=== PATIENT | female | born 1960 | race Caucasian/White ===

== ENCOUNTER 2016-11-24 20:22 | Emergency (ER) | payer BC ==
--- NOTE | 2016-11-24 21:13 | UC ---
Respiratory Complaint HPI - HPI Summary HPI Summary: The patient comes in today for: 1. Cough: Onset: "a few weeks." Palliative/provocative: Nothing makes it better or worse. Quality: Wheezy Region/radiation: Lungs. Severity: 0/10 pain. Time: Constant. Associated symptoms: Asthma: She has had this since childhood. She uses inhalers, but she is not able to tell me the names of them. She states that she has albuterol and uses the "purple and white" disk. She is also on Singulair. She does not see a lung specialist. She takes prednisone every day (10 mg). She has had prednisone for her asthma in the hospital through an IV. Chest pain: None. Dyspnea: ONly with motion,activity. Fevers: 103 and 104 last night. * - History of Current Complaint Chief Complaint: UCRespiratory Stated Complaint: COUGH Time Seen by Provider: 11/24/16 21:07 Hx Obtained From: Patient Hx Last Menstrual Period: 07/2016 dnc - Allergies/Home Medications Allergies/Adverse Reactions: Allergies Allergy/AdvReac Type Severity Reaction Status Date / Time No Known Allergies Allergy Verified 08/01/16 07:48 PMH/Surg Hx/FS Hx/Imm Hx Previously Healthy: No - Lupus on prednisone, left shoulder pain. Endocrine History Of: Reports: Diabetes - BORDERLINE Denies: Thyroid Disease, Hyperthyroidism, Hypothyroidism, Dyslipidemia Cardiovascular History Of: Reports: Hypertension - ON MEDS Denies: Cardiac Disorders, Pacemaker/ICD, Myocardial Infarction, Congestive Heart Failure, Atrial Fibrillation, Deep Vein Thrombosis, Bleeding Disorders Respiratory History Of: Reports: Asthma - WILL BRING INHALERS Denies: COPD GI/ History Of: Denies: Gastroesophageal Reflux, Ulcer, Gastrointestinal Bleed, Gall Bladder Disease, Kidney Stones, Diverticulitis, Renal Disease, Urosepsis Neurological History Of: Reports: CVA - "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 SINUS SURGERY . [facility] fall 2015 - Family History Known Family History: Positive: Cardiac Disease, Hypertension, Diabetes - Social History Occupation: Employed Full-time Alcohol Use: Rare Alcohol Amount: [place]OLIDA[place] Substance Use Type: None Smoking Status (MU): Never Smoked Tobacco Have You Smoked in the Last Year: No - Immunization History Most Recent Influenza Vaccination: denies Review of Systems Constitutional: Fever Skin: Negative Eyes: Negative ENT: Negative Respiratory: Negative, Cough Gastrointestinal: Negative Genitourinary: Negative All Other Systems Reviewed And Are Negative: Yes Physical Exam Triage Information Reviewed: Yes Appearance: No Pain Distress, Obese Vital Signs: Initial Vital Signs Temp 98.1 F 11/24/16 20:36 Pulse 104 11/24/16 20:36 Resp 20 11/24/16 20:36 BP 144/71 11/24/16 20:36 Pulse Ox 98 11/24/16 20:36 Vital Signs Reviewed: Yes Eyes: Positive: Conjunctiva Clear. Negative: Discharge ENT: Positive: Hearing grossly normal. Negative: Pharyngeal erythema, Nasal congestion, Nasal drainage, TM bulging, TM dull, TM red, Tonsillar swelling, Tonsillar exudate Dental: Negative: Gross Decay/Caries @, Dental Fracture @ Neck: Positive: Supple, Nontender, No Lymphadenopathy. Negative: Nuchal Rigidity Respiratory: Positive: Chest non-tender, No respiratory distress, Crackles, Rhonchi, Wheezing, Other: - Shortened inspiration/expiration cycle. Audible wheezing when walking into the room. No intercostal retractions seen, but she has increased subcutaneous fat present.. Negative: Lungs clear Cardiovascular: Positive: RRR, No Murmur Abdomen Description: Positive: Nontender, No Organomegaly, Soft Musculoskeletal: Positive: Strength Intact, ROM Intact Neurological: Positive: Alert, Muscle Tone Normal Psychological: Positive: Age Appropriate Behavior Skin: Negative: rashes, breakdown UC Diagnostic Evaluation - Laboratory O2 Sat by Pulse Oximetry: 98 Respiratory Course/Dx - Course Course Of Treatment: The patient was given a DuoNeb treatment. She did not think that this helped much and my exam of her lungs did not reveal any improvement. - Differential Dx/Diagnosis Provider Diagnoses: Asthma exacerbation not responsive to treatment. Discharge - Discharge Plan Condition: Stable Disposition: HOME Additional Instructions: Patient will be going to the [facility] via ambulance. She changed her mind at the last minute.
[2016-11-24] MEDS ORDERED: methylPREDNISolone 125 MG* 2 ML VIAL IM ONE (21:18)
[2016-11-24] MEDS ORDERED: Ipratropium 0.5MG/2.5ML NEB* 0.5 MG/2.5 ML NEB.SOLN INH ONE (21:18)
[2016-11-24] MEDS ORDERED: Albuterol 2.5 MG/3 ML NEB.SOL* (0.083%) INH ONE (21:18)
--- NOTE | 2016-11-24 22:00 | RAD ---
INDICATION: Shortness of breath, cough, fever 2 weeks duration. History of asthma. COMPARISON: October 11, 2011 CT abdomen. TECHNIQUE: Dual energy PA and routine lateral views of the chest were obtained. REPORT: Airspace consolidation at RIGHT lower lung zone likely involving the basilar segments of the RIGHT lower lobe. Negative for volume loss to favor atelectasis. Clear pleural spaces. Negative for pneumothorax. The heart, pulmonary vasculature, and mediastinal contours are unremarkable. IMPRESSION: RIGHT basilar pneumonia.
[2016-11-24 22:24] VITALS: BP 142/93
== END 2016-11-24 22:19 | disposition short-term general hospital (02) ==
LOC: UCEAST 20:22
DX: J45.901 Unspecified asthma with (acute) exacerbation (principal); E66.9 Obesity, unspecified; I10 Essential (primary) hypertension; I63.9 Cerebral infarction, unspecified
CPT/HCPCS: 71020; 96372; 99213; G0463; J2930; J7644

== ENCOUNTER 2016-11-24 22:47 | Inpatient (IN) | payer BC ==
[2016-11-24 23:19] LABS: PCO2 Arterial 24 mmHg (35-45)
[2016-11-25] MEDS ORDERED: cefTRIAXone(*) 1 GM in NS 0.9% 50 ML* 50 ML IVPB ONE (00:07)
[2016-11-25] MEDS ORDERED: Levofloxacin 750 MG IVPREMIX(* 750 MG/150 ML BAG IVPB ONE (00:07)
[2016-11-25 00:40] LABS: Hematocrit 40 % (35-47); Hemoglobin 13.6 g/dl (12.0-16.0); Mean Corpuscular HGB Conc 34 g/dl (31-36); Mean Corpuscular Hemoglobin 29 pg (27-31); Mean Corpuscular Volume 85 fL (80-97); Mean Platelet Volume 11 um3 (7.4-10.4); Red Blood Count 4.67 10^6/ul (4.0-5.4); Red Cell Distribution Width 13 % (10.5-15); White Blood Count 10.1 10^3/ul (3.5-10.8)
[2016-11-25 00:53] LABS: BUN/Creatinine Ratio 11.4 (8-20); C Reactive Protein 125.87 mg/L (< 5.00); Calcium 9.4 mg/dL (8.6-10.3); EGFR African American 69.5 (>60); Globulin 3.7 g/dL (2-4); Potassium 3.2 mmol/L (3.5-5.0); Total Bilirubin 0.6 mg/dL (0.2-1.0); Total Protein 7.7 g/dL (6.4-8.9)
[2016-11-25 00:55] LABS: Troponin I 0.02 ng/mL (<0.04)
[2016-11-25] MEDS ORDERED: cefTRIAXone(*) 1 GM ADVAN ONE (01:53)
[2016-11-25] MEDS ORDERED: Acetaminophen TAB* 325 MG PO PRN (03:23)
[2016-11-25] MEDS ORDERED: Albuterol 2.5 MG/3 ML NEB.SOL* (0.083%) INH PRN (03:23)
[2016-11-25] MEDS ORDERED: Melatonin (NF) 3 MG TAB PO PRN (03:24)
[2016-11-25] MEDS ORDERED: Morphine INJ* 2 MG/ML 1 ML SYRINGE IV PRN (03:24)
[2016-11-25] MEDS ORDERED: traMADol TAB* 50 MG PO PRN (03:25)
[2016-11-25] MEDS ORDERED: oxyCODONE TAB* 5 MG TAB PO PRN (03:25)
[2016-11-25] MEDS ORDERED: Ondansetron INJ* 2 MG/ML VIAL IV PRN (03:25)
--- NOTE | 2016-11-25 03:28 | HP ---
H&P (Free Text) History and Physical: PCP: Josh Lau MD Date/Time of Evaluation: 11/25/2016 0115 CC: SOB HPI: Mrs Mckeon is a 55YO female HX asthma who presented to [facility] with complaint of SOB found to have RLL pneumonia on CXR and subsequently transferred to [facility] ED. She states her cough and SOB began ~3 days ago and have been gradually worsening. She reports subjective F/C and N/V. The vomiting occurs at the end of coughing spells. PMedHx "borderline" pre-DM2 SLE HTN asthma diverticulitis Allergies No Known Allergies Allergy (Verified 08/01/16 07:48) Ambulatory Orders Albuterol HFA INHALER* [Ventolin HFA Inhaler*] 2 puff INH Q4H PRN 11/09/15 Lisinopril TAB* [Prinivil TAB*] 1 tab PO DAILY 11/09/15 predniSONE TAB* [Deltasone TAB*] 5 mg PO BID 11/09/15 Albuterol 0.5% CONC NEB.FREDY* 1 INH PRN 07/25/16 HYDROcodone/ACETAMIN 5-325 MG* [[place] 5-325 TAB*] 1 PO PRN 07/25/16 Multiple Vitamins W/ Minerals [Multivitamin Women] 1 PO DAILY 07/25/16 Montelukast Sodium TAB* [Singulair 10 MG TAB*] 10 mg PO DAILY 08/01/16 SocHx: no tobacco, alcohol, or recreational drugs; lives with her ; 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 Father passed at 72 2nd CVA. ROS: as above, otherwise reviewed and all were negative Constitutional: NAD, normally developed, morbidly obese white female vitals: Vital Signs Temp 36.4 C 11/24/16 23:10 Pulse 111 11/25/16 02:00 Resp 21 11/25/16 02:00 BP 143/76 11/25/16 01:30 Pulse Ox 96 11/25/16 02:00 Intake & Output 11/24/16 11/24/16 11/25/16 11:59 23:59 11:59 Intake Total 50 Balance 50 Weight 104.326 kg Intake: IV Fluids 50 HEENM: atraumatic; sclera/conjunctiva: non-icteric/clear; hearing: clinically intact; oropharynx: clear, mucosa moist Neck: soft tissue: non-tender; thyroid: normal Pulmonary: crackles R base with mild platt-inspiratory/expiratory wheeze, fair aeration, no accessory muscle use CV: RR/RR, normal S1S2, no carotid bruit, no jugular venous distention, 2+ B DP/ PT, no edema Abdominal: soft, non-distended, non-tender, no rebound/guarding/rigidity, normoactive bowel sounds, no hepatosplenomegaly or masses, no costovertebral angle tenderness Musculoskeletal: general: grossly intact; gait: stable Integumental: normal appearance and texture Psychiatric orientation: AA&O to PPS affect: calm mood: cooperative eye contact: good content: reliable responses: timely insight: good Testing: Lab Results 11/24/16 11/25/16 11/25/16 Range/Units 23:10 00:20 00:20 WBC 10.1 (3.5-10.8) 10^3/ul RBC 4.67 (4.0-5.4) 10^6/ul Hgb 13.6 (12.0-16.0) g/dl Hct 40 (35-47) % MCV 85 (80-97) fL MCH 29 (27-31) pg MCHC 34 (31-36) g/dl RDW 13 (10.5-15) % Plt Count 154 (150-450) 10^3/ul MPV 11 H (7.4-10.4) um3 Neut % (Auto) 82.2 (38-83) % Lymph % (Auto) 10.6 L (25-47) % [place] % (Auto) 6.3 (1-9) % Eos % (Auto) 0.4 (0-6) % Baso % (Auto) 0.5 (0-2) % Absolute Neuts (auto) 8.3 H (1.5-7.7) 10^3/ul Absolute Lymphs (auto) 1.1 (1.0-4.8) 10^3/ul Absolute Monos (auto) 0.6 (0-0.8) 10^3/ul Absolute Eos (auto) 0 (0-0.6) 10^3/ul Absolute Basos (auto) 0 (0-0.2) 10^3/ul Absolute Nucleated RBC 0.02 10^3/ul Nucleated RBC % 0.2 APTT 29.8 (26.0-36.3) seconds D-Dimer, Quantitative 305 H (Less Than 230) ng/mL ABG pH 7.51 H (7.35-7.45) ABG pCO2 24 L (35-45) mmHg ABG pO2 86 (80-100) mmHg ABG HCO3 23.2 (19-31) mmol/L ABG O2 Saturation 97.9 (95-98) % ABG Base Excess -2.1 L (-2.0-2.0) Sodium (133-145) mmol/L Potassium (3.5-5.0) mmol/L Chloride (101-111) mmol/L Carbon Dioxide (22-32) mmol/L Anion Gap (2-11) mmol/L BUN (6-24) mg/dL Creatinine (0.51-0.95) mg/dL Est GFR ( Amer) (>60) Est GFR (Non-Af Amer) (>60) BUN/Creatinine Ratio (8-20) Glucose (70-100) mg/dL Lactic Acid (0.5-2.0) mmol/L Calcium (8.6-10.3) mg/dL Total Bilirubin (0.2-1.0) mg/dL AST (13-39) U/L ALT (7-52) U/L Alkaline Phosphatase (34-104) U/L Total Creatine Kinase (10-223) U/L CK-MB (CK-2) (0.6-6.3) ng/mL Troponin I (<0.04) ng/mL C-Reactive Protein (< 5.00) mg/L B-Natriuretic Peptide ( - 100) pg/mL Total Protein (6.4-8.9) g/dL Albumin (3.2-5.2) g/dL Globulin (2-4) g/dL Albumin/Globulin Ratio (1-3) 11/25/16 11/25/16 11/25/16 Range/Units 00:20 00:20 00:20 WBC (3.5-10.8) 10^3/ul RBC (4.0-5.4) 10^6/ul Hgb (12.0-16.0) g/dl Hct (35-47) % MCV (80-97) fL MCH (27-31) pg MCHC (31-36) g/dl RDW (10.5-15) % Plt Count (150-450) 10^3/ul MPV (7.4-10.4) um3 Neut % (Auto) (38-83) % Lymph % (Auto) (25-47) % [place] % (Auto) (1-9) % Eos % (Auto) (0-6) % Baso % (Auto) (0-2) % Absolute Neuts (auto) (1.5-7.7) 10^3/ul Absolute Lymphs (auto) (1.0-4.8) 10^3/ul Absolute Monos (auto) (0-0.8) 10^3/ul Absolute Eos (auto) (0-0.6) 10^3/ul Absolute Basos (auto) (0-0.2) 10^3/ul Absolute Nucleated RBC 10^3/ul Nucleated RBC % APTT (26.0-36.3) seconds D-Dimer, Quantitative (Less Than 230) ng/mL ABG pH (7.35-7.45) ABG pCO2 (35-45) mmHg ABG pO2 (80-100) mmHg ABG HCO3 (19-31) mmol/L ABG O2 Saturation (95-98) % ABG Base Excess (-2.0-2.0) Sodium 134 (133-145) mmol/L Potassium 3.2 L (3.5-5.0) mmol/L Chloride 97 L (101-111) mmol/L Carbon Dioxide 22 (22-32) mmol/L Anion Gap 15 H (2-11) mmol/L BUN 12 (6-24) mg/dL Creatinine 1.05 H (0.51-0.95) mg/dL Est GFR ( Amer) 69.5 (>60) Est GFR (Non-Af Amer) 54.0 (>60) BUN/Creatinine Ratio 11.4 (8-20) Glucose 244 H (70-100) mg/dL Lactic Acid 3.6 H* (0.5-2.0) mmol/L Calcium 9.4 (8.6-10.3) mg/dL Total Bilirubin 0.60 (0.2-1.0) mg/dL AST 48 H (13-39) U/L ALT 64 H (7-52) U/L Alkaline Phosphatase 73 (34-104) U/L Total Creatine Kinase 240 H (10-223) U/L CK-MB (CK-2) 1.1 (0.6-6.3) ng/mL Troponin I 0.02 (<0.04) ng/mL C-Reactive Protein 125.87 H (< 5.00) mg/L B-Natriuretic Peptide 34 ( - 100) pg/mL Total Protein 7.7 (6.4-8.9) g/dL Albumin 4.0 (3.2-5.2) g/dL Globulin 3.7 (2-4) g/dL Albumin/Globulin Ratio 1.1 (1-3) ECG, personally reviewed: sinus tachycardia rate 135, diffuse non-specific ST-T abnormalities CXR, personally reviewed: IMPRESSION: RIGHT basilar pneumonia. Impression: 55F presenting with RLL pneumonia and 2nd asthma exacerbation DIAGNOSIS & PLAN Primary sepsis (tachycardia, tachypnea, lactic acidosis) 2nd RLL CAP : received IV ceftriaxone & levofloxacin in ED : will continue levofloxacin IV : guaifenesin : continue montelukast : IVFs : blood & sputum CXs : supplemental oxygen : rapid influenza : urine S pneumo & Legionella antigens : supportive care asthma exacerbation : albuterol nebs : mometasone formoterol : IV methylprednisolone : incentive spirometry minimally elevated d-dimer : gradual onset of symptoms without chest pain with RLL pneumonia and sepsis provides adequate explanation : would not pursue CTA at this time Secondary pre-DM2 : consistent carb diet : ACHS glucometry : correctional lispro while on steroids SLE : hold prednisone while on methylprednisolone HTN : continue lisinopril Admission Rational: inpatient for management of sepsis 2nd RLL pneumonia w/ asthma exacerbation inappropriate for outpatient setting DVTp: heparin SQ Code Status: full HCP:
[2016-11-25 05:17] LABS: Hematocrit 41 % (35-47); Hemoglobin 13.4 g/dl (12.0-16.0); Mean Corpuscular HGB Conc 33 g/dl (31-36); Mean Corpuscular Hemoglobin 28 pg (27-31); Mean Corpuscular Volume 87 fL (80-97); Mean Platelet Volume 10 um3 (7.4-10.4); Red Blood Count 4.74 10^6/ul (4.0-5.4); Red Cell Distribution Width 13 % (10.5-15); White Blood Count 8.2 10^3/ul (3.5-10.8)
[2016-11-25 05:27] LABS: BUN/Creatinine Ratio 12.5 (8-20); Calcium 9.6 mg/dL (8.6-10.3); EGFR Non-African American 59.9 (>60); Potassium 3.9 mmol/L (3.5-5.0)
[2016-11-25] MEDS: Omeprazole CAP* 20 MG PO SCH (06:26)
--- NOTE | 2016-11-25 06:56 | PN ---
Progress Note - Progress Note Note: Rapid influenza ordered at 0300, listed as completed, no result available in [facility] Spoke w/ lab who will look into issue & correct.
[2016-11-25] MEDS: NS 0.9% 1000 ML* 1,000 ML IV SCH ×4 (06:58→19:37)
[2016-11-25 07:19] LABS: Urine Bacteria Absent (Absent); Urine Bilirubin Negative (Negative); Urine Glucose 1+(50 mg/dL) (Negative); Urine Nitrite Negative (Negative)
[2016-11-25] MEDS: Albuterol 2.5 MG/3 ML NEB.SOL* (0.083%) INH SCH ×3 (07:32→19:56)
[2016-11-25] MEDS: Mometasone/Formoter 200/5 MDI INH SCH ×2 (07:32→19:56)
[2016-11-25] MEDS ORDERED: Spiriva Inhaler DEVICE* 1 EACH DEVICE ONE (08:00)
[2016-11-25] MEDS ORDERED: Docusate CAP* 100 MG PO SCH (09:00)
[2016-11-25] MEDS ORDERED: Tiotropium CAP.INH* CAP.INH/18 MCG INH SCH (09:00)
[2016-11-25] MEDS: Montelukast Sodium TAB* 10 MG PO SCH (09:19)
[2016-11-25] MEDS: Lisinopril TAB* 5 MG PO SCH (09:19)
[2016-11-25] MEDS: Insulin LISPRO* 1 UNITS UNIT SUBCUT SCH ×4 (09:19→21:16)
[2016-11-25] MEDS: guaiFENesin ER TAB 600 MG PO SCH ×2 (09:20→21:16)
[2016-11-25] MEDS ORDERED: Heparin VIAL(*) 5000 UNITS/ML VIAL (FIVE THOUSAND) SUBCUT SCH (11:00)
[2016-11-25] MEDS: Heparin VIAL(*) 5000 UNITS/ML VIAL (FIVE THOUSAND) SUBCUT SCH ×2 (13:51→21:15)
[2016-11-25] MEDS ORDERED: predniSONE TAB* 10 MG PO ONE (18:18)
--- NOTE | 2016-11-25 18:29 | PN ---
Subjective Date of Service: 11/25/16 Interval History: Feels much better. Some yellow sputum. No new c/o. She states the last time she was hospitalized for asthma was 15 years ago. Objective Active Medications: Acetaminophen (Tylenol Tab*) 650 mg PO Q6H PRN PRN Reason: FEVER/PAIN Last Admin: 11/25/16 15:40 Dose: 650 mg Albuterol (Ventolin 2.5 Mg/3 Ml Neb.Geena*) 2.5 mg INH Q2H PRN PRN Reason: SOB/WHEEZING Albuterol (Ventolin 2.5 Mg/3 Ml Neb.Geena*) 2.5 mg INH [id number] AWAKE [facility] Last Admin: 11/25/16 14:13 Dose: 2.5 mg Docusate Sodium (Colace Cap*) 200 mg PO BID [facility] Last Admin: 11/25/16 08:57 Dose: Not Given Guaifenesin (Mucinex*) 1,200 mg PO BID [facility] Last Admin: 11/25/16 09:20 Dose: 1,200 mg Heparin Sodium (Porcine) (Heparin Vial(*)) 5,000 units SUBCUT Q8HR [facility] Last Admin: 11/25/16 13:51 Dose: 5,000 units Levofloxacin/Dextrose (Levaquin 750 Mg Ivpremix(*)) 750 mg in 150 mls @ 100 mls /hr IVPB Q24H [facility] Sodium Chloride (Ns 0.9% 1000 Ml*) 1,000 mls @ 125 mls/hr IV PER RATE [facility] Last Admin: 11/25/16 11:26 Dose: 125 mls/hr Sodium Chloride (Ns 0.9% 1000 Ml*) 1,000 mls @ 0 mls/hr IV WIDE OPEN [facility] PRN Reason: Wide Open Stop: 11/26/16 03:31 Last Admin: 11/25/16 10:11 Dose: 999 mls/hr Insulin Human Lispro (Humalog*) 0 units SUBCUT ACHS [facility] PRN Reason: Protocol Last Admin: 11/25/16 17:34 Dose: 3 units Lisinopril (Prinivil Tab*) 5 mg PO DAILY [facility] Last Admin: 11/25/16 09:19 Dose: 5 mg Melatonin (Melatonin (Nf)) 3 mg PO BEDTIME PRN; Protocol PRN Reason: Sleep Mometasone Furoate/Formoterol Fumar (Dulera 200/5 Mdi*) 2 puff INH BID [facility] Last Admin: 11/25/16 07:32 Dose: 2 puff Montelukast Sodium (Singulair Tab*) 10 mg PO DAILY [facility] Last Admin: 11/25/16 09:19 Dose: 10 mg Morphine Sulfate (Morphine Inj (Syringe)*) 2 mg IV Q4H PRN PRN Reason: air hunger Omeprazole (Prilosec Cap*) 20 mg PO DAILY@0600 [facility] Last Admin: 11/25/16 06:26 Dose: 20 mg Ondansetron HCl (Zofran Inj*) 4 mg IV Q6H PRN PRN Reason: NAUSEA Oxycodone HCl (Roxycodone Tab*) 5 mg PO Q4H PRN PRN Reason: PAIN Prednisone (Deltasone Tab*) 30 mg PO ONCE ONE Stop: 11/25/16 18:19 Prednisone (Deltasone Tab*) 60 mg PO DAILY [facility] Tiotropium [place] (Spiriva Cap.Inh*) 1 cap INH DAILY [facility] Last Admin: 11/25/16 07:38 Dose: 1 cap.inh Tramadol HCl (Ultram*) 50 mg PO Q6H PRN PRN Reason: PAIN Vital Signs 11/25/16 11/25/16 11/25/16 01:30 02:00 03:03 Temperature 98.4 F Pulse Rate 117 111 Respiratory 24 21 Rate Blood Pressure 143/76 (mmHg) O2 Sat by Pulse 96 96 Oximetry 11/25/16 11/25/16 11/25/16 04:14 04:20 05:00 Temperature 98.2 F 98.2 F Pulse Rate 106 106 Respiratory 24 24 Rate Blood Pressure 152/81 152/81 (mmHg) O2 Sat by Pulse 96 96 Oximetry 11/25/16 11/25/16 11/25/16 07:00 07:19 07:40 Temperature 98.3 F Pulse Rate 99 102 Respiratory 22 20 22 Rate Blood Pressure 147/72 (mmHg) O2 Sat by Pulse 100 97 98 Oximetry 11/25/16 11/25/16 11/25/16 11:57 14:14 15:25 Temperature 97.6 F 97.7 F Pulse Rate 89 90 102 Respiratory 20 18 16 Rate Blood Pressure 124/74 123/81 (mmHg) O2 Sat by Pulse 97 100 96 Oximetry 11/25/16 11/25/16 15:35 17:33 Temperature 100.8 F Pulse Rate Respiratory Rate Blood Pressure (mmHg) O2 Sat by Pulse 97 Oximetry Oxygen Devices in Use Now: Nasal Cannula Appearance: Alert, sittting up in bed. In good spirits. Looks comfortable. Eyes: No Scleral Icterus Ears/Nose/Mouth/Throat: Clear Oropharnyx, Mucous Membranes Moist Neck: NL Appearance and Movements; NL JVP, No Thyroid Enlargement, Masses Respiratory: Symmetrical Chest Expansion and Respiratory Effort, Clear to Percussion, - - mild wheezing all lung grande Cardiovascular: NL Sounds; No Murmurs; No JVD, RRR, No Edema, - Extremities: No Edema, No Clubbing, Cyanosis, - Skin: No Rash or Ulcers, No Nodules or Sclerosis, - Neurological: Alert and Oriented x 3, NL Sensation Result Diagrams: 11/25/16 05:00 11/25/16 05:00 Microbiology and Other Data: Microbiology 11/25/16 06:30 Legionella Urinary Antigen - Final Urine Negative Legionella Streptococcus pneumoniae Ag Screen - Final Negative S. pneumo Antigen 11/25/16 06:59 Influenza Types A,B Antigen (TATY) - Final Nasal Specimen received for Influenza A/B Molecular testing 11/25/16 03:10 Influenza Types A,B Antigen (TATY) - Final Nasopharyngeal Specimen received for Influenza A/B Molecular testing Assess/Plan/Problems-Billing Assessment: - Patient Problems (1) Asthma attack Current Visit: Yes Status: Acute Code(s): J45.901 - UNSPECIFIED ASTHMA WITH (ACUTE) EXACERBATION SNOMED Code(s): 554884924 Comment: Precipitated by respiratory infection. Prednisone 30 mg po now, then 60 mg q AM, likely can taper fairly rapidly. Continue IV levofloxacin. Guaifenesin ER ordered. Continue montelukast. (2) SLE (systemic lupus erythematosus) Current Visit: Yes Status: Acute Code(s): M32.9 - SYSTEMIC LUPUS ERYTHEMATOSUS, UNSPECIFIED SNOMED Code(s): 46716803 Comment: Well controlled on prednisone 10 mg daily, sees Dr. Calhoun. No joint pains at present. (3) Morbid obesity Current Visit: Yes Status: Acute Code(s): E66.01 - MORBID (SEVERE) OBESITY DUE TO EXCESS CALORIES SNOMED Code(s): 609854672 Comment: BMI 45.7. (4) Diabetes Current Visit: Yes Status: Acute Code(s): E11.9 - TYPE 2 DIABETES MELLITUS WITHOUT COMPLICATIONS SNOMED Code(s): 25943470 Comment: Might benefit from glucometer at home. Consider oral agents short- term, also consider rapid prednisone taper. Note A1C 5.8% 11/25/16.
[2016-11-26] MEDS: Albuterol 2.5 MG/3 ML NEB.SOL* (0.083%) INH SCH ×4 (01:18→20:10)
[2016-11-26] MEDS ORDERED: Levofloxacin 750 MG IVPREMIX(* 750 MG/150 ML BAG IVPB SCH (02:00)
[2016-11-26] MEDS: Omeprazole CAP* 20 MG PO SCH (05:25)
[2016-11-26] MEDS: Heparin VIAL(*) 5000 UNITS/ML VIAL (FIVE THOUSAND) SUBCUT SCH ×3 (05:25→21:36)
[2016-11-26] MEDS ORDERED: Heparin VIAL(*) 5000 UNITS/ML VIAL (FIVE THOUSAND) SUBCUT SCH (06:00)
[2016-11-26] MEDS: Mometasone/Formoter 200/5 MDI INH SCH ×2 (07:25→20:11)
[2016-11-26] MEDS: NS 0.9% 1000 ML* 1,000 ML IV SCH (07:51)
[2016-11-26] MEDS: guaiFENesin ER TAB 600 MG PO SCH ×2 (08:40→21:36)
[2016-11-26] MEDS: Insulin LISPRO* 1 UNITS UNIT SUBCUT SCH ×4 (08:40→21:39)
[2016-11-26] MEDS: Docusate CAP* 100 MG PO SCH (08:41)
[2016-11-26] MEDS: predniSONE TAB* 20 MG PO SCH (08:41)
[2016-11-26] MEDS: Lisinopril TAB* 5 MG PO SCH (08:41)
[2016-11-26] MEDS: Montelukast Sodium TAB* 10 MG PO SCH (08:54)
--- NOTE | 2016-11-26 09:58 | PN ---
Subjective Date of Service: 11/26/16 Interval History: Seen this morning. Says she is feeling that her breathing is improved but still labored, particularly with exertion. SOB walking to bathroom, still quite wheezy. No fever or chills. Mild cough. Family History: Unchanged from Admission Social History: Unchanged from Admission Past Medical History: Unchanged from Admission Objective Active Medications: Acetaminophen (Tylenol Tab*) 650 mg PO Q6H PRN Albuterol (Ventolin 2.5 Mg/3 Ml Neb.Geena*) 2.5 mg INH Q2H PRN Albuterol (Ventolin 2.5 Mg/3 Ml Neb.Geena*) 2.5 mg INH [id number] AWAKE [facility] Docusate Sodium (Colace Cap*) 200 mg PO DAILY [facility] Guaifenesin (Mucinex*) 1,200 mg PO BID [facility] Heparin Sodium (Porcine) (Heparin Vial(*)) 5,000 units SUBCUT Q8HR [facility] Levofloxacin/Dextrose (Levaquin 750 Mg Ivpremix(*)) 750 mg in 150 mls @ 100 mls /hr IVPB Q24H [facility] Insulin Human Lispro (Humalog*) 0 units SUBCUT ACHS [facility] Lisinopril (Prinivil Tab*) 5 mg PO DAILY [facility] Melatonin (Melatonin (Nf)) 3 mg PO BEDTIME PRN; Protocol Mometasone Furoate/Formoterol Fumar (Dulera 200/5 Mdi*) 2 puff INH BID [facility] Montelukast Sodium (Singulair Tab*) 10 mg PO DAILY [facility] Morphine Sulfate (Morphine Inj (Syringe)*) 2 mg IV Q4H PRN Omeprazole (Prilosec Cap*) 20 mg PO DAILY@0600 [facility] Ondansetron HCl (Zofran Inj*) 4 mg IV Q6H PRN Oxycodone HCl (Roxycodone Tab*) 5 mg PO Q4H PRN Prednisone (Deltasone Tab*) 60 mg PO DAILY WITH MEAL [facility] Tramadol HCl (Ultram*) 50 mg PO Q6H PRN Vital Signs 11/25/16 11/25/16 11/25/16 11:57 14:14 15:25 Temperature 97.6 F 97.7 F Pulse Rate 89 90 102 Respiratory 20 18 16 Rate Blood Pressure 124/74 123/81 (mmHg) O2 Sat by Pulse 97 100 97 Oximetry 11/25/16 11/25/16 11/25/16 15:35 17:33 19:56 Temperature 100.8 F Pulse Rate 68 Respiratory 16 Rate Blood Pressure (mmHg) O2 Sat by Pulse 97 98 Oximetry 11/25/16 11/25/16 11/25/16 20:00 20:02 23:38 Temperature 97.9 F 97.2 F Pulse Rate 77 59 Respiratory 18 17 16 Rate Blood Pressure 143/55 115/62 (mmHg) O2 Sat by Pulse 96 100 Oximetry 11/26/16 11/26/16 11/26/16 04:03 07:27 07:29 Temperature 97.9 F 97.4 F Pulse Rate 55 68 60 Respiratory 16 18 20 Rate Blood Pressure 115/51 141/68 (mmHg) O2 Sat by Pulse 96 98 97 Oximetry Oxygen Devices in Use Now: Nasal Cannula - 1L Appearance: Middle-aged, obese, F, laying in bed in mild respiratory distress Eyes: No Scleral Icterus Ears/Nose/Mouth/Throat: Mucous Membranes Moist Neck: NL Appearance and Movements; NL JVP Respiratory: Symmetrical Chest Expansion and Respiratory Effort, - - tachypnea, diffuse wheezing Cardiovascular: NL Sounds; No Murmurs; No JVD, RRR Abdominal: NL Sounds; No Tenderness; No Distention Lymphatic: No Cervical Adenopathy Extremities: No Edema Skin: No Rash or Ulcers Neurological: Alert and Oriented x 3 Result Diagrams: 11/25/16 05:00 11/25/16 05:00 Microbiology and Other Data: Assess/Plan/Problems-Billing Assessment: CAP, asthma exacerbation in a 55 yo F with hx of asthma, HTN, SLE - Patient Problems (1) Asthma exacerbation Current Visit: Yes Comment: 2/2 CAP. Continue Prednisone, albuterol, dulera, singulair. Wean O2. Will switch to CTX/Azithromycin for CAP. (2) Diabetes Current Visit: Yes Comment: HISS while in the hosptial. Might benefit from glucometer at home. Consider oral agents short-term, also consider rapid prednisone taper. Note A1C 5.8% 11/25/16. (3) SLE (systemic lupus erythematosus) Current Visit: Yes Comment: Well controlled on prednisone 10 mg daily, sees Dr. Calhoun. No joint pains at present. (4) Morbid obesity Current Visit: Yes Comment: BMI 45.7. (5) HTN (hypertension) Current Visit: Yes Comment: Continue home Lisinopril (6) DVT prophylaxis Current Visit: Yes Comment: HSQ
--- NOTE | 2016-11-26 15:58 | RAD ---
INDICATION: Numbness and tingling COMPARISON: None TECHNIQUE: Noncontrast axial source images were acquired from the skull base to the vertex. FINDINGS: Ventricles/sulci: The ventricles and cisterns are normal in size and configuration for age. Brain parenchyma: There is no focal parenchymal finding, evidence of intracranial mass, or intracranial mass effect. Intracranial hemorrhage:None. Extra-axial spaces: There are no abnormal extra axial fluid collections or evidence of extra-axial mass. Calvarium: There is no calvarial fracture or other calvarial abnormality. Scalp: There is no evidence of scalp or extracalvarial soft tissue abnormality. Paranasal sinuses/mastoid: There is mild mucosal thickening in the floor the right maxillary antrum. Other: None. IMPRESSION: No acute intracranial findings
[2016-11-27] MEDS: Albuterol 2.5 MG/3 ML NEB.SOL* (0.083%) INH SCH ×2 (01:00→07:22)
[2016-11-27] MEDS ORDERED: cefTRIAXone VIAL(*) 1,000 MG in NS 0.9% 50 ML* 50 ML IVPB SCH (05:00)
[2016-11-27] MEDS: Omeprazole CAP* 20 MG PO SCH (05:19)
[2016-11-27] MEDS: Heparin VIAL(*) 5000 UNITS/ML VIAL (FIVE THOUSAND) SUBCUT SCH (05:20)
[2016-11-27] MEDS: Mometasone/Formoter 200/5 MDI INH SCH (07:22)
[2016-11-27 07:51] VITALS: BP 151/74
[2016-11-27] MEDS: Insulin LISPRO* 1 UNITS UNIT SUBCUT SCH (07:58)
[2016-11-27] MEDS ORDERED: Azithromycin TAB* 250 MG PO SCH (09:00)
--- NOTE | 2016-11-27 10:10 | DCNOTE ---
Patient seen this morning. Says she is feeling much better. Less SOB, cough is breaking up. No fever or chills. Still with some wheezing. L hand sensation resolved yesterday. On exam, RRR, s1 and s2 present, no m/g/r, lungs with some end expiratory wheezing, no LE edema. 5/5 strength throughout UEs B/L D/C home to complete ABx, steroid course. Continue home inhalers. F/U with PCP scheduled on 12/01
[2016-11-27] MEDS: guaiFENesin ER TAB 600 MG PO SCH (10:25)
[2016-11-27] MEDS: predniSONE TAB* 20 MG PO SCH (10:25)
[2016-11-27] MEDS: Montelukast Sodium TAB* 10 MG PO SCH (10:26)
[2016-11-27] MEDS: Lisinopril TAB* 5 MG PO SCH (10:26)
[2016-11-27] MEDS: Docusate CAP* 100 MG PO SCH (10:26)
--- NOTE | 2016-11-28 02:54 | DS ---
DISCHARGE SUMMARY: DATE OF ADMISSION: 11/25/16 DATE OF DISCHARGE: 11/27/16 PRIMARY CARE PHYSICIAN: Dr. Lau. PRINCIPAL DISCHARGE DIAGNOSIS: Community-acquired pneumonia, asthma exacerbation. SECONDARY DIAGNOSES: 1. Hypertension. 2. Lupus. STUDIES DONE DURING HOSPITALIZATION: CT of the brain, impression: No acute intracranial findings. DISCHARGE MEDICATIONS: 1. Azithromycin 500 mg by mouth daily. 2. Cefpodoxime 200 mg by mouth every 12 hours. 3. Advair 1 puff inhaled 2 times daily. 4. Prednisone 40 mg by mouth daily with meals. 5. Albuterol 2 puffs inhaled every 4 hours as needed for shortness of breath and wheezing. 6. Lisinopril 5 mg by mouth daily. 7. Singulair 10 mg by mouth daily. 8. Multivitamin 1 tablet by mouth daily. 9. [place] 5/325 one tablet by mouth every 6 hours. 10. Albuterol neb 1 puff inhaled every 4 hours as needed for shortness of breath and wheezing. HISTORY OF PRESENT ILLNESS AND HOSPITAL SUMMARY: Please see the full history and physical by Dr. Adan Honeycutt for further details. Briefly, Ms. Mckeon is a 55-year-old female with past medical history of asthma, who initially presented to [facility], found to have evidence on pneumonia on chest x-ray, was transferred to [facility]. She had significant shortness of breath and wheezing. She was placed on oxygen, started on antibiotics, as well as steroids. Over the following days, the patient's respiratory symptoms improved. She remained afebrile during the hospitalization, was able to be weaned off of oxygen. She did have a brief episode of left hand tingling. This was likely felt to be more due to positioning than anything else. On neuro exam, she had some questionable LUE weakness; however, but was still showing 5/[address] of the brain was negative. Tingling resolved on its own and did not recur. The patient was discharged home to complete oral antibiotics and steroid therapy. She will follow up with her PCP as an outpatient. TIME SPENT: Total time spent on this discharge 35 minutes. This is a summary of the hospitalization. Please see the full medical record for further details. CC: Dr. Lau* [id number]/[facility] #: [id number] [facility]
--- NOTE | 2016-12-12 12:18 | ED ---
Brielle Grimes Claudia, scribed for Jc Johnston MD on 11/24/16 at 2253 . Respiratory - HPI Summary HPI Summary: 55 year old female presents to the ED via [facility] with SOB. Pt notes she has been having 3 days of progressive worsening over respiratory Sx. Pt notes she has been unable to sleep due to the Sx. Pt also admits to fever. Pt has received 5 treatments of albuterol today with no alleviation of her Sx. Per EMS at [facility] she received a CXR that notes right basilar pneumonia. Pt denies being on any antibiotics currently for Sx. - History of Current Complaint Stated Complaint: BREATHING PROBLEMS-UCEAST XFER Hx Obtained From: Patient Character: Wheezing, Dyspnea at Rest Aggravating Factor(s): Nothing Alleviating Factor(s): Nothing Associated Signs and Symptoms: Fever, SOB, Dyspnea - Allergy/Home Medications Allergies/Adverse Reactions: Allergies Allergy/AdvReac Type Severity Reaction Status Date / Time No Known Allergies Allergy Verified 08/01/16 07:48 PMH/Surg Hx/FS Hx/Imm Hx Previously Healthy: Yes Endocrine/Hematology History: Reports: Hx Diabetes - BORDERLINE Denies: Hx Anticoagulant Therapy, Hx Thyroid Disease Cardiovascular History: Reports: Hx Hypertension - ON MEDS Denies: Hx Congestive Heart Failure, Hx Deep Vein Thrombosis, Hx Myocardial Infarction, Hx Pacemaker/ICD, Other Cardiovascular Problems/Disorders Respiratory History: Reports: Hx Asthma - WILL BRING INHALERS Denies: Hx Chronic Obstructive Pulmonary Disease (COPD), Hx Lung Cancer, Other Respiratory Problems/Disorders GI History: Reports: Other GI Disorders - DIVERTICULITIS 2010 Denies: Hx Gall Bladder Disease, Hx Gastrointestinal Bleed, Hx Ulcer, Hx Urosepsis History: Denies: Hx Kidney Stones, Hx Renal Disease Musculoskeletal History: Reports: Hx Arthritis - SHOULDERS AND KNEES, Other Musculoskeletal History - LUPUS Sensory History: Reports: Hx Contacts or Glasses - READING Denies: Hx Hearing Aid Opthamlomology History: Reports: Hx Contacts or Glasses - READING Neurological History: Denies: Hx Dementia, Hx Migraine, Hx Seizures, Hx Transient Ischemic Attacks (TIA) Psychiatric History: Denies: Hx Anxiety, Hx Depression, Hx Panic Disorder, Hx Schizophrenia, Hx Bipolar Disorder - Surgical History Surgery Procedure, Year, and Place: Tubal 1982. SINUS SURGERY . c fall 2015 Hx Anesthesia Reactions: No Infectious Disease History: Denies: Hx Clostridium Difficile, Hx Hepatitis, Hx Human Immunodeficiency Virus (HIV), Hx of Known/Suspected MRSA, Hx Shingles, Hx Tuberculosis, Hx Known/ Suspected VRE, Hx Known/Suspected VRSA, History Other Infectious Disease - Family History Known Family History: Positive: Cardiac Disease, Hypertension, Diabetes - Social History Occupation: Employed Full-time Lives: With Family Alcohol Use: Rare Alcohol Amount: [place]OL[place] Substance Use Type: Reports: None Smoking Status (MU): Never Smoked Tobacco Have You Smoked in the Last Year: No Review of Systems Positive: Fever Eyes: Negative ENT: Negative Cardiovascular: Negative Positive: Shortness Of Breath Gastrointestinal: Negative Genitourinary: Negative Musculoskeletal: Negative Skin: Negative Neurological: Negative Psychological: Normal All Other Systems Reviewed And Are Negative: Yes Physical Exam Triage Information Reviewed: Yes Vital Signs Reviewed: Yes Appearance: Positive: Well-Appearing, No Pain Distress Skin: Positive: Warm, Skin Color Reflects Adequate Perfusion, Dry Head/Face: Positive: Normal Head/Face Inspection Eyes: Positive: EOMI, MALVIN ENT: Positive: Normal ENT inspection Neck: Positive: Supple, Nontender Respiratory/Lung Sounds: Positive: Breath Sounds Present, Wheezes - bilaterally , Other - moderate respiratory distress Cardiovascular: Positive: RRR Abdomen Description: Positive: Nontender, Soft Musculoskeletal: Positive: Normal, Strength/ROM Intact Neurological: Positive: Normal, Sensory/Motor Intact, Alert, Oriented to Person Place, Time Psychiatric: Positive: Affect/Mood Appropriate Diagnostics - Laboratory Result Diagrams: 11/25/16 05:00 11/25/16 05:00 Lab Statement: Any lab studies that have been ordered have been reviewed, and results considered in the medical decision making process. - EKG 2314 Cardiac Rate: Tachycardia EKG Rhythm: Sinus Tachycardia - 135 BEATS/MIN Ectopy: None EKG Interpretation: FLIPPED T WAVES IN III AND AVF Disposition - Diagnoses Provider Diagnoses: Dyspnea - Physician Notifications Discussed Care Of Patient With: Lela Honeycutt. Discussed patient care with Dr. Honeycutt whom will [place] [facility] Time Discussed With Above Provider: 23:59 Discharge - Discharge Plan Condition: Stable Disposition: ADMITTED TO [facility] documentation as recorded by the Brielle marcelo Claudia accurately reflects the service I personally performed and the decisions made by , Jc Johnston MD.
== END 2016-11-27 11:41 | disposition home or self-care (01) | DRG 139 ==
LOC: ED 22:47 → MEDTELE 11-25 01:14
PROVIDERS: ADMIT Hospitalist; ATTEND Hospitalist
DX: J18.9 Pneumonia, unspecified organism (principal); J45.901 Unspecified asthma with (acute) exacerbation; M32.9 Systemic lupus erythematosus, unspecified; Z68.42 Body mass index [BMI] 45.0-49.9, adult; E66.01 Morbid (severe) obesity due to excess calories; I10 Essential (primary) hypertension; Z82.49 Family history of ischemic heart disease and other diseases of the circulatory system; Z82.3 Family history of stroke; R73.03 Prediabetes; Z79.52 Long term (current) use of systemic steroids; R20.2 Paresthesia of skin
CPT/HCPCS: 36415; 36600; 70450; 71020; 80048; 80053; 81003; 81015; 82550; 82553; 82803; 83036; 83605; 83880; 84484; 85025; 85379; 85730; 86140; 87040; 87502; 87899; 93005; 94640; 94760; 96372; 99213; A9270-GY; G0463; J0696; J1644; J2930; J7512; J7644

== ENCOUNTER 2018-12-09 08:51 | Emergency (ER) | payer BC ==
[2018-12-09 09:08] VITALS: BP 157/86
--- NOTE | 2018-12-09 09:55 | UC ---
FLU HPI - HPI Summary HPI Summary: 4 days of sore throat, fever, body aches occasional morel and neck pain. denies difficulty breathing. nothing makes it better/worse. - History of Current Complaint Chief Complaint: UCGeneralIllness Stated Complaint: SORE THROAT HEADACHE NECK PAIN Time Seen by Provider: 12/09/18 09:53 Hx Obtained From: Patient Hx Last Menstrual Period: 07/2016 dnc Pain Intensity: 8 Pain Scale Used: 0-10 Numeric Associated Signs & Symptoms: Positive: Fever - Risk Factors Influenza Risk Factors: Negative - Allergy/Home Medications Allergies/Adverse Reactions: Allergies Allergy/AdvReac Type Severity Reaction Status Date / Time No Known Allergies Allergy Verified 12/09/18 09:08 PMH/Surg Hx/FS Hx/Imm Hx - Additional Past Medical History Additional PMH: obese Cardiovascular History: Hypertension, Other - TIA Other History Of: Negative For: HIV, Hepatitis B, Hepatitis C, Anticoagulant Therapy - Surgical History Surgical History: Yes Surgery Procedure, Year, and Place: Tubal 1982. SINUS SURGERY - Family History Known Family History: Positive: Cardiac Disease, Hypertension, Diabetes - Social History Alcohol Use: Rare Alcohol Amount: [place] Substance Use Type: None Smoking Status (MU): Never Smoked Tobacco Have You Smoked in the Last Year: No - Immunization History Most Recent Influenza Vaccination: denies Most Recent Tetanus Shot: unknown Most Recent Pneumonia Vaccination: none Review of Systems All Other Systems Reviewed And Are Negative: Yes Constitutional: Positive: Negative Skin: Negative: Rash ENT: Positive: Sore Throat, Sinus Congestion. Negative: Ear Ache, Nasal Discharge Respiratory: Positive: Cough Cardiovascular: Positive: Negative. Negative: Chest Pain Musculoskeletal: Positive: Myalgia Neurological: Positive: Headache Physical Exam Triage Information Reviewed: Yes Appearance: Well-Appearing Vital Signs: Initial Vital Signs Temp 97 F 12/09/18 09:06 Pulse 95 12/09/18 09:06 Resp 17 12/09/18 09:06 BP 157/86 12/09/18 09:06 Pulse Ox 99 12/09/18 09:06 Vital Signs Reviewed: Yes Eyes: Positive: Conjunctiva Clear ENT: Positive: Pharyngeal erythema, Nasal congestion, TMs normal, Uvula midline. Negative: Tonsillar swelling, Tonsillar exudate Neck: Positive: Supple, Tenderness @ - bila ant. cervical chain, Enlarged Nodes @ - L ant. cervical. Negative: Nuchal Rigidity Respiratory Exam: Normal Cardiovascular Exam: Normal Neurological: Positive: Alert Skin: Negative: Rashes Flu Course/Dx - Course Course Of Treatment: today + for STREP, will tx w/ pcn. There was no nuchal rigidity. BP slightly elevated but otherwise good vitals. She will contact her pcp about this. We verbally corrected pcn via phone w/ pharmacy to 500mg. - Differential Dx/Diagnosis Differential Diagnosis/HQI/PQRI: Influenza, Upper Respiratory Infection, Other - pharyngitis Provider Diagnosis: HTN (hypertension), Strep pharyngitis Discharge - Sign-Out/Discharge Documenting (check all that apply): Patient Departure All imaging exams completed and their final reports reviewed: No Studies - Discharge Plan Condition: Good Disposition: HOME Prescriptions: Penicillin VK TAB* [Penicillin VK 250 mg Tab*] 500 mg PO BID 10 Days #20 tab Patient Education Materials: Strep Throat (ED) Referrals: Ramón Lau MD [Primary Care Provider] - - Billing Disposition and Condition Condition: GOOD Disposition: Home
[2018-12-09 10:27] LABS: Influenza A Molecular NEGATIVE (Negative); Influenza B Molecular NEGATIVE (Negative)
== END 2018-12-09 10:35 | disposition home or self-care (01) ==
LOC: UCEAST 08:51
DX: J02.0 Streptococcal pharyngitis (principal); I10 Essential (primary) hypertension; Z86.73 Personal history of transient ischemic attack (TIA), and cerebral infarction without residual deficits
CPT/HCPCS: 87651; 99212; G0463

== ENCOUNTER 2019-02-18 18:15 | Emergency (ER) | payer BC ==
--- OUTSIDE RECORDS SUMMARY | 2019-02-18 18:27 | XMS REPORT | Continuity of Care Document ---
:1960 External Reference #:[id number] Author Name Jn Gayle M.D. Address [address] [place] [address] [address] [place] [address] Care Team Providers Name Role Phone HCP given Primary Care Physician Unavailable Payers Date Identification Numbers Payment Provider Subscriber Policy Number: [id number] [employer] Ind/Ppo/Hmo/Pos Angie Mckeon PayID: [id number] [address] [place] [address] Problems Active Problems Provider Date Impaired fasting glycaemia Jn Gayle M.D. Onset: 02/16/2019 Cramp in lower leg associated with rest Jn Gayle M.D. Onset: 2018 Essential tremor Jn Gayle M.D. Onset: 12/31/2018 Uncomplicated moderate persistent asthma Jn Gayle M.D. Onset: 2018 Essential hypertension Jn Gayle M.D. Onset: 12/31/2018 Systemic lupus erythematosus Jn Gayle M.D. Onset: 12/31/2018 History of polyp of colon Jn Gayle M.D. Onset: 12/31/2018 Family History Date Family Member(s) Observation Comments General Alcoholism Dad, Paternal Grandmother & Grandfather General Asthma Mother ( my whole family) General Anemia daughter General Lung Cancer Grandpa General Throat Cancer Grandma General Melanoma Brother General Diabetes, NOS 3 Brothers General Heart Disease Brother & Mother General High Blood Pressure 1 Sister & 4 Brothers General Obesity "all" Father due to Stroke () Mother due to Heart Attack () First Daughter 38 Second Daughter 35 Siblings 6 5 brothers, 1 sister First Brother due to MVA () Second Brother due to Cancer () Social History Type Date Description Comments Sex Unknown Education Highest level completed, 12th grade Marital Status Remarried 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[employer]); 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/31/18 Work Status Currently Working Tobacco Use Reviewed: Never Smoked Cigarettes 12/31/18 ETOH Use 12/31/2018 Denies alcohol use Recreational Drug Use Never Used Drugs Tobacco Use Reviewed: Patient has never 12/31/18 smoked Smoking Status Reviewed: Patient has never 02/17/19 smoked Exercise Type/Frequency Exercises regularly Sun Exposure Does not use sunscreen Seat Belt/Car Seat Seat Belt Use - Yes Currently Active Patient is currently sexually active Age 1st [place] 17 Years Old # Partners in a Lifetime Partners 5-10 Allergies, Adverse Reactions, Alerts Description No Known Drug Allergies Medications Active Medications SIG Qnty Indications Ordering Date Provider Prednisone 1 by mouth every J45.40 Jn Gayle, 02/16/2019 20mg morning from M.D. Tablets 02/17-02/19; starting on 02/20 resume your baseline dose of 5mg 2x/day Lisinopril-Hydrochlo take two tablets 180tabs I10 Jn Gayle, 2018 rothiazide by mouth every M.D. 20-12.5mg morning for high Tablets blood pressure B Complex 1 daily (for leg G47.62 Jn Gayle, 02/15/2019 Capsules cramps) M.D. Advair Diskus inhale one puff by 60units J45.40 Jn Gayle, 2018 mouth twice a day; M.D. 500-50mcg/Dose rinse mouth out Aerosol after use Primidone 1/2 tab at bedtime 100tabs G25.0 Jn Gayle, 12/31/2018 50mg to start; increase M.D. Tablets by 1/2 tablet every 4-5 days until you get to 5 tablets/night; for tremor Prednisone 1 by mouth 2x/day, 60tabs M32.9 Jn Gayle, 12/30/2018 5mg for lupus M.D. Tablets Albuterol Sulfate 2 puffs every 4 J45.40 Unknown 12/30/2018 HFA hours as needed 108(90Base) for cough, mcg/Act Aerosol wheezing, sob Singulair 1 tablet by mouth Unknown 12/30/2018 10mg once daily for Tablets allergies Omeprazole 2 pills as needed Unknown 12/30/[address] Paul Washington 4 1 pill every day Unknown 12/30/2018 History Medications Prednisone 3 by mouth every 30tabs J45.40 Jn Gayle, 02/07/2019 - 20mg day for 5 days M.D. 02/16/2019 Tablets then 2 every morning until further notice Lisinopril-Hydrochl take one tablets I10 Unknown 12/30/2018 - orothiazide by mouth every 02/16/2019 morning for high 20-12.5mg Tablets blood pressure Advair Diskus inhale 1 puff J45.40 Unknown 12/30/2018 - twice daily; 02/07/2019 250-50mcg/Dose gargle after use Aerosol Naproxen 2 as needed for Unknown 12/30/2018 - 500mg joints 02/06/2019 Tablets Vital Signs Date Vital Result Comment 02/16/2019 11:11am BP Systolic 148 mmHg BP Diastolic 80 mmHg Weight 240.00 lb 02/07/2019 5:15pm BP Systolic 148 mmHg BP Diastolic 88 mmHg BP Systolic Recheck 156 mmHg R arm sitting BP Diastolic Recheck 82 mmHg R arm sitting 12/31/2018 3:28pm BP Systolic 144 mmHg BP Diastolic 82 mmHg Height 61 inches 5'1" Weight 236.00 lb BMI (Body Mass Index) 44.6 kg/m2 Results Test Date Facility Test Result H/L Range Note Lipid Profile 02/10/2019 [facility] Triglycerides 72 mg/dL 1 (Trig/Chol/HDL) [phone] Cholesterol 172 mg/dL 2 HDL Cholesterol 43.3 mg/dL 3 LDL Cholesterol 114 mg/dL 4 Basic Metabolic Panel 02/10/2019 [facility] Sodium 141 mmol/L N 135- 145 [phone] Potassium 4.3 mmol/L N 3.5-5.0 Chloride 105 mmol/L N 101-111 Co2 Carbon Dioxide 28 mmol/L N 22-32 Anion Gap 8 mmol/L N 2-11 Glucose 115 mg/dL High 70-100 Blood Urea Nitrogen 17 mg/dL N 6-24 Creatinine 0.94 mg/dL N 0.51-0.95 BUN/Creatinine Ratio 18.1 N 8-20 Calcium 9.8 mg/dL N 8.6-10.3 Egfr Non- 60.7 >60 Egfr 73.5 >60 5 CBC Auto Diff 02/10/2019 [facility] White Blood Count 6.9 10^3/uL N 3.5-10.8 [phone] Red Blood Count 4.71 10^6/uL N 3.70-4.87 Hemoglobin 13.3 g/dL N 12.0-16.0 Hematocrit 40 % N 35-47 Mean Corpuscular Volume 86 fL N 80-97 Mean Corpuscular Hemoglobin 28 pg N 27-31 Mean Corpuscular HGB Conc 33 g/dL N 31-36 Red Cell Distribution Width 14 % N 10.5-15 Platelet Count 194 10^3/uL N 150-450 Mean Platelet Volume 10.1 fL N 7.4-10.4 Abs Neutrophils 5.2 10^3/uL N 1.5-7.7 Abs Lymphocytes 1.3 10^3/uL N 1.0-4.8 Abs Monocytes 0.4 10^3/uL N 0-0.8 Abs Eosinophils 0.0 10^3/uL N 0-0.6 Abs Basophils 0.0 10^3/uL N 0-0.2 Abs Nucleated RBC 0.0 10^3/uL Granulocyte % 74.8 % Lymphocyte % 18.1 % Monocyte % 6.2 % Eosinophil % 0.4 % Basophil % 0.5 % Nucleated Red Blood Cells % 0.1 Laboratory test 02/10/2019 [facility] Erythrocyte Sed 30 mm/Hr High 0 -29 finding [phone] Rate C Reactive Protein 5.27 mg/L N <8.01 Magnesium 2.1 mg/dL N 1.9-2.7 Hepatitis C Antibody 02/10/2019 [facility] HCV Index < 0.0 Index [phone] Hepatitis C Antibody Nonreactive Nonreactive Laboratory test 02/10/2019 [facility] Creatine Kinase(CK) 53 U/L N 10 -223 finding [phone] Aldolase 4.5 U/L <7.7 6 1 Desirable: <150 Borderline High: 150-199 High: 200-499 Very High: >500 2 Desirable: <200 Borderline High: 200-239 High: >239 3 Low: <40 Desirable: 40-60 High: >60 4 Desirable: <100 Near Optimal: 100-129 Borderline High: 130-159 High: 160-189 Very High: >189 5 Because ethnic data is not always readily available, this report includes an eGFR for both -Americans and non- Americans. The National Kidney Disease Education Program (NKDEP) does not endorse the use of the MDRD equation for patients that are not between the ages of 18 and 70, are , have extremes of body size, muscle mass, or nutritional status, or are non- or non-. According to the National Kidney Foundation, irrespective of diagnosis, the stage of the disease is based on the level of kidney function: Stage Description GFR(mL/min/1.73 m(2)) 1 Kidney damage with normal or decreased GFR 90 2 Kidney damage with mild decrease in GFR 60-89 3 Moderate decrease in GFR 30-59 4 Severe decrease in GFR 15-29 5 Kidney failure <15 (or dialysis) 6 Test Performed by: [address] [address] Procedures Date Code Description Status 02/07/2019 20434 Bronchospasm Evaluation Pre & Post Completed 02/07/2019 22812 Electrocardiogram Complete Completed 09/28/2008 [id number] Colonoscopy Completed Encounters Type Date Location Provider Dx Diagnosis Office Visit 02/16/2019 Main Office Jn Gayle, R73.01 Impaired fasting 11:00a M.D. glucose I10 Essential (primary) hypertension J45.40 Moderate persistent asthma, uncomplicated M32.9 Systemic lupus erythematosus, unspecified M79.652 Pain in left thigh M79.651 Pain in right thigh G47.62 Sleep related leg cramps Office Visit 02/07/2019 4:00p Main Office Jn Gayle, I10 Essential (primary) M.D. hypertension J45.40 Moderate persistent asthma, uncomplicated G25.0 Essential tremor G47.62 Sleep related leg cramps M79.651 Pain in right thigh M79.652 Pain in left thigh Office Visit 12/31/2018 3:30p Main Office Jn Gayle, Z86.010 Personal history M.D. of colonic polyps M32.9 Systemic lupus erythematosus, unspecified I10 Essential (primary) hypertension J45.40 Moderate persistent asthma, uncomplicated G25.0 Essential tremor G47.62 Sleep related leg cramps Z13.220 Encounter for screening for lipoid disorders R12 Heartburn I67.9 Cerebrovascular disease, unspecified Z11.59 Encounter for screening for other viral diseases R53.83 Other fatigue Plan of Treatment Future Appointment(s):04/19/2019 9:30 am - Jn Gayle M.D. at [facility]/07/2019 - Jn Gayle M.D.I10 Essential (primary) hypertensionComments:await labs then adjust medsJ45.40 Moderate persistent asthma, uncomplicatedNew Medication:Advair Diskus 500-50 mcg/Dose - inhale one puff by mouth twice a day; rinse mouth out after usePrednisone 20 mg - 3 by mouth every day for 5 days then 2 every morning until further noticeFollow up: RTO 1 wkG25.0 Essential phtebzB07.62 Sleep related leg crampsFollow up:As we discussed, try taking a B-complex supplement (over the counter; needs to be taken for a while to see the benefit) to see if it helps with your leg cramps.M79.651 Pain in right thighNew Labs:Creatine Kinase(CK), Ordered: Aldolase, Ordered: 02/07/19Comments:Cause NYDM79.652 Pain in left thigh
[2019-02-18] MEDS ORDERED: Acetaminophen TAB* 325 MG PO ONE (20:05)
[2019-02-18] MEDS ORDERED: NS 0.9% 1000 ML** 2,000 ML IV ONE (21:55)
[2019-02-18] MEDS ORDERED: PROCHLORPERAZINE INJ 5 MG/ML 2 ML VIAL IV ONE (21:55)
[2019-02-18] MEDS ORDERED: diPHENhydraMINE IV* 50 MG/ML 1 ml VIAL (BENADRYL) IV ONE (21:55)
[2019-02-18] MEDS ORDERED: Ketorolac INJ* 30 MG/ML 1 ML VIAL IV PUSH ONE (21:55)
[2019-02-18 21:56] LABS: ABS Basophils 0.1 10^3/ul (0-0.2); ABS Eosinophils 0.1 10^3/ul (0-0.6); ABS Lymphocytes 2.5 10^3/ul (1.0-4.8); ABS Neutrophils 7.4 10^3/ul (1.5-7.7); Eosinophil % 0.8 %; Hematocrit 42 % (35-47); Lymphocyte % 22.6 %; Mean Corpuscular HGB Conc 33 g/dL (31-36); Mean Corpuscular Hemoglobin 28 pg (27-31); Mean Corpuscular Volume 85 fL (80-97); Mean Platelet Volume 9.3 fL (7.4-10.4); Nucleated Red Blood Cells % 0.1; Platelet Count 203 10^3/uL (150-450); Red Blood Count 4.95 10^6 /uL (3.70-4.87); Red Cell Distribution Width 14 % (10.5-15); White Blood Count 11.1 10^3/uL (3.5-10.8)
--- NOTE | 2019-02-18 22:05 | ED ---
Headache - HPI Summary HPI Summary: Pt is a 58 y/o F presenting to the ED with a chief complaint of a headache. She woke up this morning and felt very dizzy, nauseous, then vomited and started seeing floaters. Her BP was 140/47 and they told her to come to the ED if it got lower after elevating it a bit. She went home and took a nap, and when she woke up she had a severe headache, described as aching on her temporal lobes. She denies nausea, abd pain, or audiophobia. She reports photophobia, VARELA, and somewhat blurred vision. - History Of Current Complaint Chief Complaint: EDHeadache Stated Complaint: LOW BP, HEADACHE PER PT Time Seen by Provider: 02/18/19 21:49 Hx Obtained From: Patient Hx Last Menstrual Period: 07/2016 dnc Onset/Duration: Sudden Onset, Started hours ago, Still Present Initially Headache Was: Severe Currently Pain Is: Severe Timing: Constant, Hours Character: Typical Headache - aching Location of Headache: Temporal Aggravating Factor: Bright Lights Allevating Factors: Nothing Associated Signs And Symptoms: Dizziness, Nausea, Vomiting, Visual Changes - Allergies/Home Medications Allergies/Adverse Reactions: Allergies Allergy/AdvReac Type Severity Reaction Status Date / Time No Known Allergies Allergy Verified 02/18/19 18:22 Home Medications: Home Medications Primidone 50 mg PO DAILY 02/18/19 [History Confirmed 02/18/19] Vitamin B Complex [Super B-50 Complex] 1 each PO DAILY 02/18/19 [History Confirmed 02/18/19] PMH/Surg Hx/FS Hx/Imm Hx Previously Healthy: Yes Endocrine/Hematology History: Reports: Hx Diabetes - BORDERLINE Denies: Hx Anticoagulant Therapy, Hx Thyroid Disease Cardiovascular History: Reports: Hx Hypertension - ON MEDS Denies: Hx Congestive Heart Failure, Hx Deep Vein Thrombosis, Hx Myocardial Infarction, Hx Pacemaker/ICD, Other Cardiovascular Problems/Disorders Respiratory History: Reports: Hx Asthma - WILL BRING INHALERS Denies: Hx Chronic Obstructive Pulmonary Disease (COPD), Hx Lung Cancer, Other Respiratory Problems/Disorders GI History: Reports: Other GI Disorders - DIVERTICULITIS 2010 Denies: Hx Gall Bladder Disease, Hx Gastrointestinal Bleed, Hx Ulcer, Hx Urosepsis History: Denies: Hx Kidney Stones, Hx Renal Disease Musculoskeletal History: Reports: Hx Arthritis - SHOULDERS AND KNEES, Other Musculoskeletal History - LUPUS Sensory History: Reports: Hx Contacts or Glasses - READING Denies: Hx Hearing Aid Opthamlomology History: Reports: Hx Contacts or Glasses - READING Neurological History: Denies: Hx Dementia, Hx Migraine, Hx Seizures, Hx Transient Ischemic Attacks (TIA) Psychiatric History: Denies: Hx Anxiety, Hx Depression, Hx Panic Disorder, Hx Schizophrenia, Hx Bipolar Disorder - Surgical History Surgery Procedure, Year, and Place: Tubal 1982. SINUS SURGERY Hx Anesthesia Reactions: No Infectious Disease History: No Infectious Disease History: Denies: Hx Clostridium Difficile, Hx Hepatitis, Hx Human Immunodeficiency Virus (HIV), Hx of Known/Suspected MRSA, Hx Shingles, Hx Tuberculosis, Hx Known/ Suspected VRE, Hx Known/Suspected VRSA, History Other Infectious Disease, Traveled Outside the [place] in Last 30 Days - Family History Known Family History: Positive: Cardiac Disease, Hypertension, Diabetes - Social History Alcohol Use: Rare Alcohol Amount: HOLIDAYS Hx Substance Use: No Substance Use Type: Reports: None Hx Tobacco Use: No Smoking Status (MU): Never Smoked Tobacco Have You Smoked in the Last Year: No Review of Systems Negative: Other - audiophobia Positive: Photophobia, Blurred Vision, Other - flaoters Negative: Abdominal Pain, Nausea Neurological: Other - dizziness Positive: Headache All Other Systems Reviewed And Are Negative: Yes Physical Exam - Summary Physical Exam Summary: Appearance: Well-appearing, Well-nourished, lying in bed comfortably Skin: Warm, dry, no obvious rash Eyes: sclera anicteric, no conjunctival pallor ENT: mucous membranes moist, pharynx appears normal Neck: Supple, nontender Respiratory: Clear to auscultation, no signs of respiratory distress Cardiovascular: Normal S1, S2. No murmurs. Normal distal pulses in tibial and radial bilaterally. Abdomen: Soft, nontender, normal active bowel sounds present Musculoskeletal: Normal, Strength/ROM Intact Neurological: A&Ox3, awake and alert, mentation is normal, speech is fluent and appropriate Psychiatric: affect is normal, does not appear anxious or depressed Triage Information Reviewed: Yes Vital Signs On Initial Exam: Initial Vitals Temp Pulse Resp BP Pulse Ox 97.8 F 70 16 204/103 96 02/18/19 18:16 02/18/19 18:16 02/18/19 18:16 02/18/19 18:16 02/18/19 18:16 Vital Signs Reviewed: Yes Diagnostics - Vital Signs Vital Signs Temp Pulse Resp BP Pulse Ox 02/18/19 21:51 69 98 02/18/19 21:50 58 181/86 97 02/18/19 20:10 99.0 F 77 16 166/103 95 02/18/19 18:16 97.8 F 70 16 204/103 96 - Laboratory Lab Results: Lab Results 02/18/19 Range/Units 21:50 WBC 11.1 H (3.5-10.8) 10^3/uL RBC 4.95 H (3.70-4.87) 10^6 /uL Hgb 14.0 (12.0-16.0) g/dL Hct 42 (35-47) % MCV 85 (80-97) fL MCH 28 (27-31) pg MCHC 33 (31-36) g/dL RDW 14 (10.5-15) % Plt Count 203 (150-450) 10^3/uL MPV 9.3 (7.4-10.4) fL Neut % (Auto) 66.8 % Lymph % (Auto) 22.6 % [place] % (Auto) 9.2 % Eos % (Auto) 0.8 % Baso % (Auto) 0.6 % Absolute Neuts (auto) 7.4 (1.5-7.7) 10^3/ul Absolute Lymphs (auto) 2.5 (1.0-4.8) 10^3/ul Absolute Monos (auto) 1.0 H (0-0.8) 10^3/ul Absolute Eos (auto) 0.1 (0-0.6) 10^3/ul Absolute Basos (auto) 0.1 (0-0.2) 10^3/ul Absolute Nucleated RBC 0.0 10^3/ul Nucleated RBC % 0.1 Result Diagrams: 02/18/19 21:50 02/18/19 21:50 Lab Statement: Any lab studies that have been ordered have been reviewed, and results considered in the medical decision making process. - EKG 2153 Cardiac Rate: NL - 61 bpm EKG Rhythm: Sinus Rhythm ST Segment: Normal Ectopy: None Summary of EKG Findings: EKG at 2153 shows NSR at 61bpm with no STEMI. Headache Course/Dx - Course Course Of Treatment: Pt is a 58 y/o F presenting to the ED with a chief complaint of a headache. She reports dizziness, nausea, vomiting, and seeing floaters this morning, as well as hypotension. She went home from work where she took a nap, and woke up with a headache described as aching on her temporal lobes. The nausea went away, and she denies abd pain and audiophobia. She reports photophobia, VARELA, and somewhat blurred vision. Her hematology results show WBC of 11.1, and RBC of 4.95. EKG at 2154 shows NSR at 61bpm with no STEMI. In the ED course, the pt was given 975mg Acetaminophen, 25mg Diphenhydramine, 10mg Toradol, 10mg Prochlorperazine, and IV fluids. The pt is feeling better and will be sent home with a dx of headache and vertigo. She is stable and agreeable with this plan. - Diagnoses Provider Diagnoses: Headache, Vertigo Discharge - Sign-Out/Discharge Documenting (check all that apply): Patient Departure Patient Received Moderate/Deep Sedation with Procedure: No - Discharge Plan Condition: Good Disposition: HOME Patient Education Materials: Vertigo (ED), Acute Headache (ED) Referrals: Jn Gayle MD [Primary Care Provider] - Additional Instructions: Given the timing of your symptoms with starting this new medication, I would recommend holding the medicine for now and checking in with your doctor on Thursday. - Billing Disposition and Condition Condition: GOOD Disposition: Home - Attestation Statements Document Initiated by Anirudh: Yes Documenting Scribe: Nedra Alexander Provider For Whom Anirudh is Documenting (Include Credential): Tate Grossman MD. Scribe Attestation: INedra, scribed for Tate Grossman MD. on 02/22/19 at 2026. Scribe Documentation Reviewed: Yes Provider Attestation: The documentation as recorded by the Nedra marcelo accurately reflects the service I personally performed and the decisions made by me, Tate Grossman MD. Status of Scribe Document: Viewed
[2019-02-18 22:10] LABS: INR 0.99 (0.82-1.09)
[2019-02-18 22:19] LABS: Albumin 4.3 g/dL (3.2-5.2); Albumin/Globulin Ratio 1.2 (1-3); BUN/Creatinine Ratio 17.4 (8-20); Calcium 9.8 mg/dL (8.6-10.3); EGFR African American 81.4 (>60); EGFR Non-African American 67.3 (>60); Globulin 3.6 g/dL (2-4); Potassium 4.1 mmol/L (3.5-5.0); Total Bilirubin 0.6 mg/dL (0.2-1.0); Total Protein 7.9 g/dL (6.4-8.9)
[2019-02-18 22:21] LABS: Troponin I 0.01 ng/mL (<0.04)
[2019-02-18 23:39] VITALS: BP 134/66
== END 2019-02-18 23:41 | disposition home or self-care (01) ==
LOC: ED 18:15
DX: R51 Headache (principal); R42 Dizziness and giddiness; I10 Essential (primary) hypertension; R73.03 Prediabetes; J45.909 Unspecified asthma, uncomplicated; M13.812 Other specified arthritis, left shoulder; M13.811 Other specified arthritis, right shoulder; M13.862 Other specified arthritis, left knee; M13.861 Other specified arthritis, right knee; Z79.899 Other long term (current) drug therapy; Z79.51 Long term (current) use of inhaled steroids
CPT/HCPCS: 36415; 80053; 84484; 85025; 85610; 93005; 96361; 96374; 96375; 99283; A9270-GY; J0780; J1200; J1885

== ENCOUNTER 2019-11-10 06:49 | Day surgery (SDC) | payer BC ==
[~2019-11-10 06:49] MED LIST: Buffered Lidocaine 1% SYRIN* 1 ML/SYRINGE INTRADERM ONE; Lactated Ringers 1000 ML Bag* 1,000 ML IV SCH
[2019-11-10] MEDS ORDERED: ceFAZolin 2 GM in NS PREMIX(*) 2 GM/100 ML BAG IVPB ONE (07:04)
[2019-11-10] MEDS ORDERED: Naloxone* 0.4 MG/ML 1 ML VIAL IV PRN (07:22)
[2019-11-10] MEDS ORDERED: HYDROmorphone INJ1* 1 MG/ML SYRINGE IV PRN (07:22)
[2019-11-10] MEDS ORDERED: fentaNYL* 50 MCG/ML 2 ML VIAL (100 MCG VIAL) ONE (08:00)
[2019-11-10] MEDS ORDERED: Midazolam* 1 MG/ML 2 ML VIAL (2 MG) ONE (08:00)
[2019-11-10] MEDS ORDERED: Bupivacaine 0.5% SDV PF* 30ML VIAL ONE (09:07)
[2019-11-10] MEDS ORDERED: Lidocaine 1% MPF ** 5 ML VIAL ONE (09:07)
[2019-11-10] MEDS ORDERED: Bupivacaine 0.5%* 50 ML MDV VIAL ONE (09:12)
[2019-11-10] MEDS ORDERED: Phenylephrine 40 MCG/ML SYRINGE ONE (09:52)
[2019-11-10] MEDS ORDERED: EPHEDrine (Pressors)* 50 MG/ML VIAL ONE (09:52)
[2019-11-10] MEDS ORDERED: Ondansetron INJ* 2 MG/ML VIAL ONE (09:52)
[2019-11-10] MEDS ORDERED: Propofol* 10 MG/ML 20 ML BTL ONE (09:52)
[2019-11-10] MEDS ORDERED: Dexamethasone IV* 4 MG/ML 1 ML (4 MG) ONE (09:52)
--- NOTE | 2019-11-10 10:42 | OP ---
Operative Report - Blank - Operative Report Date of Operation: 11/10/19 Note: PATIENT: Angie Mckeon DATE OF : 1960 DATE OF SURGERY: 11/10/2019 SURGEON: Dm Saucedo MD MOLD FINISHER: MIRTA Shrestha, whos assistance was necessary for positioning, retraction, help with instrumentation, and closure. ANESTHESIOLOGIST: Dr. Eastman PREOPERATIVE DIAGNOSIS: Left peroneal tenosynovitis and peroneus brevis tear. Left calcaneal exostosis. POSTOPERATIVE DIAGNOSIS: Left peroneal tenosynovitis and peroneus brevis tear. Left calcaneal exostosis. OPERATION: 1. Left peroneus brevis tendon repair. 2. Left synovectomy of peroneal tendon sheath. 3. Left calcaneal saucerization with excision of an enlarged peroneal tubercle. ANESTHESIA: General + block IMPLANTS: Arthrex fibertak suture anchor x2 TOURNIQUET TIME: Less than one hour with a calf tourniquet at 250 mmHg. SPECIMENS: none ESTIMATED BLOOD LOSS: minimal COMPLICATIONS: none STATUS: Stable from the operating room to the recovery room and then home. INDICATIONS FOR PROCEDURE: Angie has had persistent left lateral ankle pain and swelling and an MRI consistent with peroneus brevis tear. She has tried extensive nonoperative treatment, without improvement. Both operative and non operative treatment alternatives were reviewed. Further, the nature and risks of surgery were reviewed in careful detail, in the office as well as the pre-operative holding area. Our discussions regarding the risks of surgery included, but were not limited to, infection, wound problems, nerve injury, neuroma, RSD, persistent symptoms, blood clot, failure of the surgery, and even the remote chance of catastrophic complication. DESCRIPTION OF PROCEDURE: The patient was seen in the preoperative holding unit and informed written consent was obtained. The appropriate extremity was marked. The patient was then brought to the operating room and carefully positioned on the operating room table. Anesthesia was induced. All bony prominences were padded with great care. A chlorhexidine based pre-scrub was performed followed by a chloraprep prep and drape in standard sterile fashion. A surgical safety pause was then conducted in which we confirmed the appropriate patient, extremity, planned procedure, availability of equipment, indication and administration of prophylactic antibiotics, and DVT prophylaxis in the form of a compression boot on the non-surgical extremity. I began with placement of a sterile calf tourniquet 3 finger-breadths distal to the fibular neck. An Esmarch exsanguination of the limb was then performed and the tourniquet inflated. I utilized an incision overlying the peroneal tendons laterally. I carried the dissection down through the soft tissue to the level of the periosteum and superior peroneal retinaculum (SPR) with care taken to protect the sural nerve, which was not visualized during the procedure. I carefully incised the SPR off of the posterior fibula to expose the peroneal tendons. Dissection of the tendons was carried distally. There was a large amount of inflamed tenosynovium within the tendon sheath. An extensive synovectomy was performed. Additionally, there was a low-lying peroneus brevis muscle belly which was debrided and excised. The tendons were explored at this time for any tears. There was a longitudinal split tear of the peroneus brevis. A removed an unrepairable slip of loose frayed tendon in this area, leaving approximately 65% of the tendon intact. I then utilized a 3-0 Ethibond suture to repair and tubularize the tendon tear. I then exposed the enlarged peroneal tubercle. I took down the gliding layer and then utilized a rongeur to remove this large tubercle, thus performing a saucerization of the calcaneus. At this point, I carefully inspected the peroneal groove at the posterior aspect of the fibula. This was deemed to have adequate depth so the decision was made not to perform a groove deepening procedure. So at this point I carefully planned out the repair of the superior peroneal retinaculum. I then reduced the tendons and they sat nicely in the retro-fibular groove. The wound was copiously irrigated. I repaired the SPR utilizing 2 Arthrex fiber tack suture anchors in a horizontal mattress suture pattern. I further repaired the SPR with #1 Vicryl. I utilized multiple sutures for this repair, appropriately tensioning the SPR. I was able to pass a [place] under the repaired SPR without difficulty after the repair. We then irrigated the wound copiously again. The wound was closed in a layered fashion utilizing 3-0 Monocryl and 3-0 nylon. A sterile dressing was then applied and the ankle was splinted in a neutral position. All needle and sponge counts were correct at the end of the case. The patient was awakened from anesthesia and transferred to the recovery room in stable condition. There were no complications. ATTESTATION: I attest I was present and scrubbed and performed the critical portions of the procedure myself. POST-OPERATIVE PLAN: The patient will remain [id number] for an anticipated duration of 6 weeks. Follow up will be in 2 weeks for likely suture removal and transition into a short leg cast. We will use aspirin for DVT prophylaxis.
[2019-11-10 11:56] VITALS: BP 137/79
== END 2019-11-10 12:01 | disposition home or self-care (01) ==
LOC: OR 06:49
PROVIDERS: ATTEND Orthopaedic Surgery
DX: M76.72 Peroneal tendinitis, left leg (principal); M89.372 Hypertrophy of bone, left ankle and foot; S86.312A Strain of muscle(s) and tendon(s) of peroneal muscle group at lower leg level, left leg, initial encounter; X58.XXXA Exposure to other specified factors, initial encounter; Y92.9 Unspecified place or not applicable; G89.18 Other acute postprocedural pain; E11.9 Type 2 diabetes mellitus without complications; M32.9 Systemic lupus erythematosus, unspecified; M19.90 Unspecified osteoarthritis, unspecified site; R25.1 Tremor, unspecified; F41.9 Anxiety disorder, unspecified; I10 Essential (primary) hypertension; J45.909 Unspecified asthma, uncomplicated; G47.33 Obstructive sleep apnea (adult) (pediatric); Z86.73 Personal history of transient ischemic attack (TIA), and cerebral infarction without residual deficits
CPT/HCPCS: C1713; J0690; J1100; J2250; J2405; J2704; J3010; J3490

== ENCOUNTER 2020-09-03 18:27 | Inpatient (IN) ==
[2020-09-03] MEDS ORDERED: Albuterol 0.5% CONC NEB.SOL 5 mg/ml 20 ml BOT INH ONE (19:06)
[2020-09-03] MEDS ORDERED: Albuterol HFA INHALER 8 gm MDI INH ONE ×3 (19:20→20:00)
[2020-09-03 19:23] LABS: Hematocrit 44 % (35-47); Hemoglobin 14.6 g/dL (12.0-16.0); Mean Corpuscular HGB Conc 34 g/dL (31-36); Mean Corpuscular Hemoglobin 29 pg (27-31); Mean Corpuscular Volume 86 fL (80-97); Mean Platelet Volume 9.9 fL (7.4-10.4); Platelet Count 129 10^3/uL (150-450); Red Blood Count 5.07 10^6 /uL (3.70-4.87); Red Cell Distribution Width 15 % (10-15)
[2020-09-03 19:39] LABS: ABS Lymphocytes 1.4 10^3/ul (1.0-4.8); ABS Monocytes 0.8 10^3/ul (0-0.8); ABS Neutrophils 0.7 10^3/ul (1.5-7.7); Eosinophil % 0.9 %; Lymphocyte % 48.1 %; Nucleated Red Blood Cells % 0.2
[2020-09-03 19:42] LABS: Troponin I 0.01 ng/mL (<0.03)
[2020-09-03 20:00] LABS: Potassium 3.9 mmol/L (3.5-5.0)
[2020-09-03 20:01] LABS: Albumin 4.2 g/dL (3.2-5.2); Albumin/Globulin Ratio 1.4 (1-3); BUN/Creatinine Ratio 12.8 (8-20); C Reactive Protein 5.63 mg/L (<8.01); Calcium 9.4 mg/dL (8.6-10.3); EGFR African American 61.7 (>60); Globulin 3.1 g/dL (2-4); Total Bilirubin 0.4 mg/dL (0.2-1.0); Total Protein 7.3 g/dL (6.4-8.9)
[2020-09-03 20:21] LABS: Influenza A Molecular Negative (Negative); Influenza B Molecular Negative (Negative)
[2020-09-03] MEDS ORDERED: Iodixanol (CONTRAST) 320 MG/ML 100 ML SDV IV ONE (20:53)
[2020-09-03] MEDS ORDERED: methylPREDNISolone 125 mg 2 ML VIAL IV ONE (21:42)
[2020-09-03] MEDS ORDERED: Magnesium Sulfate 2 gm BAG 2 GM/50 ML BAG IVPB ONE (22:43)
[2020-09-03] MEDS ORDERED: Remdesivir 5 MG/ML LIQ IV Vial 200 MG in NS 0.9% 250 ml 210 ML IV ONE (23:30)
[2020-09-04] MEDS: cefTRIAXone 1 gm/50 mL NS BAG 1 GM/50 ML BAG IVPB SCH ×2 (00:12→21:55)
[2020-09-04] MEDS ORDERED: EPINEPHrine,Rac 2.25% NEB.SOL 0.5 ML INH ONE ×4 (01:39→14:19)
[2020-09-04] MEDS ORDERED: Magnesium Sulfate 2 gm BAG 2 GM/50 ML BAG IVPB ONE (01:42)
[2020-09-04] MEDS ORDERED: EPINEPHrine,Rac 2.25% NEB.SOL 0.5 ML ONE ×3 (01:44→15:43)
[2020-09-04] MEDS ORDERED: methylPREDNISolone SOD 40 mg/ml 1 ml VIAL IV ONE (01:59)
[2020-09-04] MEDS ORDERED: Succinylcholine 200 mg VIAL 20 mg/ml 10 ml VIAL (200 mg) ONE (02:05)
[2020-09-04] MEDS ORDERED: Rocuronium 50 mg VIAL 10 mg/ml 5 ml VIAL (50 mg) ONE (02:05)
[2020-09-04] MEDS ORDERED: Propofol 10 mg/ml 100 ML BTL 0 ML ONE (02:05)
[2020-09-04] MEDS ORDERED: Morphine 4 MG/ML VIAL (1 ml) IV ONE (02:12)
[2020-09-04] MEDS ORDERED: LORazepam 2 mg VIAL 1 ml IV PUSH ONE ×2 (02:19→02:38)
[2020-09-04] MEDS ORDERED: Lorazepam PYXIS KEY PRN ×2 (02:19→02:38)
[2020-09-04] MEDS ORDERED: Lorazepam PYXIS KEY ONE (02:22)
[2020-09-04] MEDS ORDERED: LORazepam 2 mg VIAL 1 ml ONE (02:22)
[2020-09-04] MEDS: Pantoprazole VIAL 40 MG VIAL IV SCH ×3 (02:35→22:00)
[2020-09-04] MEDS: Enoxaparin 60 MG/0.6 ML SYR SUBCUT SCH ×2 (02:35→15:03)
[2020-09-04] MEDS ORDERED: Azithromycin 500 mg/250 ml NS 500 MG/250 ML BAG IVPB ONE (04:29)
[2020-09-04 05:04] LABS: ABS Lymphocytes 0.4 10^3/ul (1.0-4.8); ABS Monocytes 0.1 10^3/ul (0-0.8); ABS Neutrophils 1.5 10^3/ul (1.5-7.7); Hematocrit 40 % (35-47); Hemoglobin 13.5 g/dL (12.0-16.0); Mean Corpuscular HGB Conc 34 g/dL (31-36); Mean Corpuscular Hemoglobin 29 pg (27-31); Mean Corpuscular Volume 86 fL (80-97); Mean Platelet Volume 10.2 fL (7.4-10.4); Platelet Count 106 10^3/uL (150-450); Red Blood Count 4.63 10^6 /uL (3.70-4.87); Red Cell Distribution Width 15 % (10-15); White Blood Count 1.9 10^3/uL (3.5-10.8)
[2020-09-04 05:21] LABS: Albumin/Globulin Ratio 1.3 (1-3); BUN/Creatinine Ratio 15.4 (8-20); Calcium 8.7 mg/dL (8.6-10.3); EGFR African American 65.2 (>60); EGFR Non-African American 53.9 (>60); Magnesium 2.7 mg/dL (1.9-2.7); Phosphorus 3.5 mg/dL (2.5-5.0); Potassium 3.6 mmol/L (3.5-5.0); Total Bilirubin 0.4 mg/dL (0.2-1.0)
[2020-09-04 05:27] LABS: Urine Appearance Clear; Urine Bacteria 1+ (Absent); Urine Bilirubin Negative (Negative); Urine Blood Negative (Negative); Urine Color Yellow; Urine Glucose 1+(50 mg/dL) (Negative); Urine Ketones 1+ (Negative); Urine Nitrite Negative (Negative); Urine Protein 1+(30 mg/dL) (Negative); Urine Red Blood Cell Absent (Absent); Urine Specific Gravity > 1.030 (1.010-1.030); Urine Squamous Epithelial Cell Present (Absent); Urine Urobilinogen Negative (Negative); Urine White Blood Cell Trace(0-5/hpf) (Absent)
[2020-09-04] MEDS ORDERED: Dextrose 50% Syringe 50 ml 25 GM/50 ML SYRINGE IV PUSH PRN (06:54)
[2020-09-04] MEDS ORDERED: Potassium Chlor 10 meq TAB PO ONE (09:30)
[2020-09-04] MEDS: Potassium Chloride LIQUID 20 MEQ/15 ML LIQUID PO ONE ×2 (09:37→09:45)
[2020-09-04] MEDS ORDERED: Albuterol HFA INHALER 8 gm MDI INH SCH (15:00)
[2020-09-04] MEDS: Albuterol HFA INHALER 8 gm MDI INH SCH (19:20)
[2020-09-05] MEDS: Albuterol HFA INHALER 8 gm MDI INH SCH ×3 (00:22→13:07)
[2020-09-05] MEDS: Remdesivir 5 MG/ML LIQ IV Vial 100 MG in NS 0.9% 250 ml 230 ML IV SCH ×2 (01:19→22:42)
[2020-09-05] MEDS: Enoxaparin 60 MG/0.6 ML SYR SUBCUT SCH ×2 (03:50→18:19)
[2020-09-05] MEDS: Pantoprazole VIAL 40 MG VIAL IV SCH ×2 (09:00→19:06)
[2020-09-05] MEDS ORDERED: methylPREDNISolone 125 mg 2 ML VIAL ONE (09:34)
[2020-09-05 10:14] LABS: Hematocrit 43 % (35-47); Hemoglobin 14.6 g/dL (12.0-16.0); Mean Corpuscular HGB Conc 34 g/dL (31-36); Mean Corpuscular Hemoglobin 29 pg (27-31); Mean Corpuscular Volume 87 fL (80-97); Mean Platelet Volume 10.3 fL (7.4-10.4); Platelet Count 141 10^3/uL (150-450); Red Blood Count 4.98 10^6 /uL (3.70-4.87); Red Cell Distribution Width 15 % (10-15); White Blood Count 8.1 10^3/uL (3.5-10.8)
[2020-09-05] MEDS ORDERED: Albuterol/Ipratropium NEB.SOL (2.5/0.5 MG) 3 ML NEB.SOLN INH PRN (10:27)
[2020-09-05 11:02] LABS: Anion Gap 9 mmol/L (2-11); BUN/Creatinine Ratio 19.1 (8-20); Blood Urea Nitrogen 17 mg/dL (6-24); CO2 Carbon Dioxide 23 mmol/L (22-32); Calcium 9.2 mg/dL (8.6-10.3); Chloride 107 mmol/L (101-111); EGFR Non-African American 64.5 (>60); Glucose 125 mg/dL (70-100); Magnesium 2.3 mg/dL (1.9-2.7); Potassium 4.1 mmol/L (3.5-5.0); Sodium 139 mmol/L (135-145)
[2020-09-05] MEDS ORDERED: methylPREDNISolone 125 mg 2 ML VIAL IV ONE (12:00)
[2020-09-05] MEDS ORDERED: Lactated Ringers 1000 ml BAG 1,000 ML IV ONE (12:00)
[2020-09-05 12:02] LABS: ALT 55 U/L (7-52); AST 44 U/L (13-39); Albumin 4.1 g/dL (3.2-5.2); Albumin/Globulin Ratio 1.2 (1-3); Alkaline Phosphatase 62 U/L (34-104); Globulin 3.4 g/dL (2-4); Total Protein 7.5 g/dL (6.4-8.9)
[2020-09-05] MEDS ORDERED: Albuterol HFA INHALER 8 gm MDI INH PRN (13:24)
[2020-09-05] MEDS: Albuterol/Ipratropium NEB.SOL (2.5/0.5 MG) 3 ML NEB.SOLN INH SCH ×3 (15:22→23:17)
[2020-09-05] MEDS ORDERED: Magnesium Hydroxide LIQ 30 ML UDC PO ONE (15:25)
[2020-09-05] MEDS ORDERED: Senna TAB 8.6 mg TAB PO PRN (15:25)
[2020-09-05] MEDS ORDERED: Levalbuterol 1.25MG/0.5ML NEB.SOL INH PRN (18:17)
[2020-09-05] MEDS: methylPREDNISolone SOD 40 mg/ml 1 ml VIAL IV SCH ×2 (18:22→23:37)
[2020-09-05] MEDS: EPINEPHrine,Rac 2.25% NEB.SOL 0.5 ML INH PRN (19:32)
[2020-09-05] MEDS: LORazepam 2 mg VIAL 1 ml IV PUSH PRN (19:36)
[2020-09-05] MEDS ORDERED: Morphine 2 MG/ML SYRINGE IV ONE (20:00)
[2020-09-05] MEDS: cefTRIAXone 1 gm/50 mL NS BAG 1 GM/50 ML BAG IVPB SCH (21:02)
[2020-09-05] MEDS: Budesonide NEB 0.5 MG/2 ML NEB.SOLN INH SCH (23:30)
[2020-09-06] MEDS: Enoxaparin 60 MG/0.6 ML SYR SUBCUT SCH ×3 (00:33→18:01)
[2020-09-06 03:20] LABS: Hematocrit 37 % (35-47); Hemoglobin 12.3 g/dL (12.0-16.0); Mean Corpuscular HGB Conc 34 g/dL (31-36); Mean Corpuscular Hemoglobin 29 pg (27-31); Mean Corpuscular Volume 87 fL (80-97); Mean Platelet Volume 9.7 fL (7.4-10.4); Platelet Count 104 10^3/uL (150-450); Red Blood Count 4.24 10^6 /uL (3.70-4.87); Red Cell Distribution Width 15 % (10-15); White Blood Count 5.2 10^3/uL (3.5-10.8)
[2020-09-06 03:34] LABS: Albumin 3.4 g/dL (3.2-5.2); Albumin/Globulin Ratio 1.3 (1-3); BUN/Creatinine Ratio 21.7 (8-20); Calcium 8.7 mg/dL (8.6-10.3); EGFR African American 84.6 (>60); EGFR Non-African American 69.9 (>60); Globulin 2.6 g/dL (2-4); Magnesium 2.2 mg/dL (1.9-2.7); Potassium 4.5 mmol/L (3.5-5.0); Total Bilirubin 0.2 mg/dL (0.2-1.0)
[2020-09-06] MEDS: Albuterol/Ipratropium NEB.SOL (2.5/0.5 MG) 3 ML NEB.SOLN INH SCH ×6 (04:14→23:13)
[2020-09-06] MEDS: methylPREDNISolone SOD 40 mg/ml 1 ml VIAL IV SCH ×3 (05:48→19:38)
[2020-09-06] MEDS ORDERED: Morphine 2 MG/ML SYRINGE IV PRN (05:52)
[2020-09-06] MEDS: EPINEPHrine,Rac 2.25% NEB.SOL 0.5 ML INH PRN (05:58)
[2020-09-06] MEDS: Budesonide NEB 0.5 MG/2 ML NEB.SOLN INH SCH ×2 (07:38→18:11)
[2020-09-06] MEDS: LORazepam 2 mg VIAL 1 ml IV PUSH PRN (08:22)
[2020-09-06] MEDS: Pantoprazole VIAL 40 MG VIAL IV SCH ×2 (08:23→19:38)
[2020-09-06] MEDS ORDERED: LORazepam 2 mg VIAL 1 ml IV PUSH PRN (11:00)
[2020-09-06] MEDS: cefTRIAXone 1 gm/50 mL NS BAG 1 GM/50 ML BAG IVPB SCH (21:05)
[2020-09-06] MEDS: Remdesivir 5 MG/ML LIQ IV Vial 100 MG in NS 0.9% 250 ml 230 ML IV SCH (22:26)
[2020-09-07] MEDS: Enoxaparin 60 MG/0.6 ML SYR SUBCUT SCH ×2 (03:43→16:46)
[2020-09-07] MEDS: methylPREDNISolone SOD 40 mg/ml 1 ml VIAL IV SCH ×2 (03:43→16:46)
[2020-09-07] MEDS: Albuterol/Ipratropium NEB.SOL (2.5/0.5 MG) 3 ML NEB.SOLN INH SCH ×6 (03:47→23:06)
[2020-09-07 04:01] LABS: Hematocrit 36 % (35-47); Hemoglobin 12.6 g/dL (12.0-16.0); Mean Corpuscular HGB Conc 35 g/dL (31-36); Mean Corpuscular Hemoglobin 30 pg (27-31); Mean Corpuscular Volume 87 fL (80-97); Mean Platelet Volume 9.8 fL (7.4-10.4); Platelet Count 112 10^3/uL (150-450); Red Blood Count 4.18 10^6 /uL (3.70-4.87); Red Cell Distribution Width 15 % (10-15); White Blood Count 6.4 10^3/uL (3.5-10.8)
[2020-09-07 04:18] LABS: Albumin 3.4 g/dL (3.2-5.2); Albumin/Globulin Ratio 1.4 (1-3); BUN/Creatinine Ratio 22.5 (8-20); Calcium 8.5 mg/dL (8.6-10.3); EGFR African American 88.2 (>60); EGFR Non-African American 72.9 (>60); Globulin 2.5 g/dL (2-4); Magnesium 2.1 mg/dL (1.9-2.7); Potassium 4.7 mmol/L (3.5-5.0); Total Bilirubin 0.3 mg/dL (0.2-1.0); Total Protein 5.9 g/dL (6.4-8.9)
[2020-09-07] MEDS: Budesonide NEB 0.5 MG/2 ML NEB.SOLN INH SCH ×2 (07:01→19:17)
[2020-09-07] MEDS: Pantoprazole VIAL 40 MG VIAL IV SCH ×2 (07:57→19:37)
[2020-09-07] MEDS ORDERED: Albuterol HFA INHALER 8 gm MDI INH PRN (19:00)
[2020-09-07] MEDS: cefTRIAXone 1 gm/50 mL NS BAG 1 GM/50 ML BAG IVPB SCH (19:56)
[2020-09-07] MEDS: Remdesivir 5 MG/ML LIQ IV Vial 100 MG in NS 0.9% 250 ml 230 ML IV SCH (22:13)
[2020-09-08] MEDS: Enoxaparin 60 MG/0.6 ML SYR SUBCUT SCH ×2 (04:03→16:47)
[2020-09-08] MEDS: methylPREDNISolone SOD 40 mg/ml 1 ml VIAL IV SCH ×2 (04:04→16:47)
[2020-09-08 04:45] LABS: Hematocrit 38 % (35-47); Hemoglobin 12.6 g/dL (12.0-16.0); Mean Corpuscular HGB Conc 33 g/dL (31-36); Mean Corpuscular Hemoglobin 29 pg (27-31); Mean Corpuscular Volume 87 fL (80-97); Mean Platelet Volume 10.1 fL (7.4-10.4); Red Blood Count 4.36 10^6 /uL (3.70-4.87); Red Cell Distribution Width 15 % (10-15); White Blood Count 5.1 10^3/uL (3.5-10.8)
[2020-09-08 04:46] LABS: Albumin 3.4 g/dL (3.2-5.2); Albumin/Globulin Ratio 1.3 (1-3); BUN/Creatinine Ratio 23.2 (8-20); Calcium 8.5 mg/dL (8.6-10.3); EGFR African American 85.8 (>60); EGFR Non-African American 70.9 (>60); Globulin 2.6 g/dL (2-4); Potassium 4.3 mmol/L (3.5-5.0); Total Bilirubin 0.3 mg/dL (0.2-1.0)
[2020-09-08] MEDS: Albuterol/Ipratropium NEB.SOL (2.5/0.5 MG) 3 ML NEB.SOLN INH SCH ×4 (07:06→19:42)
[2020-09-08] MEDS: Budesonide NEB 0.5 MG/2 ML NEB.SOLN INH SCH ×2 (08:06→19:43)
[2020-09-08] MEDS: Pantoprazole VIAL 40 MG VIAL IV SCH ×2 (08:39→19:59)
[2020-09-08 08:40] LABS: Platelet Count 95 10^3/uL (150-450)
[2020-09-09] MEDS: Enoxaparin 60 MG/0.6 ML SYR SUBCUT SCH (03:40)
[2020-09-09] MEDS: methylPREDNISolone SOD 40 mg/ml 1 ml VIAL IV SCH (03:41)
[2020-09-09 04:20] LABS: Hematocrit 39 % (35-47); Hemoglobin 13.2 g/dL (12.0-16.0); Mean Corpuscular HGB Conc 34 g/dL (31-36); Mean Corpuscular Hemoglobin 29 pg (27-31); Mean Corpuscular Volume 86 fL (80-97); Mean Platelet Volume 9.8 fL (7.4-10.4); Platelet Count 105 10^3/uL (150-450); Red Blood Count 4.56 10^6 /uL (3.70-4.87); Red Cell Distribution Width 14 % (10-15); White Blood Count 5.5 10^3/uL (3.5-10.8)
[2020-09-09 04:35] LABS: Albumin 3.5 g/dL (3.2-5.2); Albumin/Globulin Ratio 1.4 (1-3); Calcium 8.9 mg/dL (8.6-10.3); EGFR African American 98.1 (>60); Globulin 2.5 g/dL (2-4); Potassium 4.2 mmol/L (3.5-5.0); Total Bilirubin 0.5 mg/dL (0.2-1.0)
[2020-09-09] MEDS: Albuterol/Ipratropium NEB.SOL (2.5/0.5 MG) 3 ML NEB.SOLN INH SCH ×4 (07:01→15:23)
[2020-09-09] MEDS: Budesonide NEB 0.5 MG/2 ML NEB.SOLN INH SCH (08:19)
[2020-09-09] MEDS: Pantoprazole VIAL 40 MG VIAL IV SCH (09:03)
[2020-09-09 13:14] VITALS: BP 142/109
[2020-09-10] MEDS ORDERED: Influenza VAC *QUAD* 2020-21* 0.5 ML SYRINGE IM ONE (09:00)
== END 2020-09-09 17:30 | disposition home or self-care (01) | DRG 137 ==
LOC: ED 18:27 → ICU 23:02
PROVIDERS: ADMIT Internal Medicine; ATTEND Internal Medicine